=== PATIENT | male | born 1955 | race Caucasian/White ===

== ENCOUNTER 2022-06-16 14:03 | Emergency (ER) | payer MEDICARE ==
[~2022-06-16] VITALS: Ht 180.3 cm; Wt 133.8 kg
[~2022-06-16 14:03] MED LIST: ALLOPURINOL100 M1 PO; ATOR40TA PO; Amiodarone HCl200 MG PO; CARVEDILOL25 M9 PO; DULCOLAX400 MG/5 M PO; ISOSORBIDE MONO60 MG PO; JARDIANCE10 MG PO; METFORMIN HCL500 M3 PO; OXYCODONE-ACET1 EAC3 UD; Percocet 5-3251 EACH PO; TRULICITY4.5 MG/0.5 SC; XARELTO15 M1 PO; Zestril30 MG PO
[2022-06-17] MEDS ORDERED: ASPI81CH PO (08:40)
== END 2022-06-16 17:55 | disposition home or self-care (01) ==
LOC: ER 14:03
DX: S99.912A Unspecified injury of left ankle, initial encounter (principal)
CPT/HCPCS: 99281

== ENCOUNTER 2022-06-16 17:52 | Inpatient (IN) | payer OTHER, MEDICARE ==
[~2022-06-16] VITALS: Ht 180.3 cm; Wt 179.2 kg
--- NOTE | 2022-06-16 18:26 | NUR ---
ARRIVED TO ROOM VIA W/C, 4 PERSON MAX ASSIST W/ MARU LIFT TO TRANSFER TO BED, PT STATES HE HASN'T BEEN ABLE TO BEAR WEIGHT ON R LEG AND LLE IS NWB W/ SPLINT AND LINH WRAP, DENIES ANY NEED FOR PAIN MEDS AT THIS TIMEORIENTED TO ROOM AND CALL LIGHT, REPORT TO BAILEY QUINTERO.
--- NOTE | 2022-06-16 18:32 | NUR ---
DR. FREEDMAN NOTIFIED PT IS IN ROOM BY [employer]SELIT[employer] INDUCTOR TESTER.
[2022-06-16 19:25] LABS: Hematocrit 38.2 % (37.0-53.0); Hemoglobin 11.2 g/dL (13.5-17.5)
[2022-06-16 19:41] LABS: Bun/Creatinine Ratio 11.9 (12.0-20.0); Calcium, Blood 8.9 mg/dL (8.5-10.1); Creatinine, Blood 1.68 mg/dL (0.60-1.20); Potassium, Blood 4.1 mmol/L (3.5-5.5)
[2022-06-16 19:43] LABS: International Normalized Ratio 1.19; Prothrombin Time Results 12.4 Sec (9.7-11.5)
[2022-06-17 06:35] LABS: BASOPHILS ABSOLUTE AUTO 0.03 K/mm3 (0.00-0.23); BASOPHILS PERCENT AUTO 1 % (0-2); EOSINOPHILS ABSOLUTE AUTO 0.04 K/mm3 (0.00-0.68); EOSINOPHILS PERCENT AUTO 1 % (0-6); Hematocrit 35.5 % (37.0-53.0); IMMATURE GRAN ABSOLUTE AUTO 0.04 K/mm3 (0.00-0.10); IMMATURE GRAN PERCENT AUTO 1 % (0-1); LYMPHOCYTES PERCENT AUTO 31 % (21-46); MONOCYTES ABSOLUTE AUTO 0.62 K/mm3 (0.16-1.47); MONOCYTES PERCENT AUTO 12 % (4-13); Mean Corpuscular HGB 26.4 pg (26.0-34.0); Mean Corpuscular Volume 85 fL (80-100); Mean Platelet Volume 8.9 fL (9.1-12.4); NEUTROPHILS ABSOLUTE AUTO 2.89 K/mm3 (1.96-9.15); NEUTROPHILS PERCENT AUTO 55 % (41-73); Platelet Count 277 K/mm3 (150-400); RDW Coefficient Variation 15.9 % (11.7-14.2); Red Blood Cell Count 4.17 M/mm3 (4.30-5.90); White Blood Cell Count 5.22 K/mm3 (4.00-11.30)
--- NOTE | 2022-06-17 06:47 | NUR ---
SUMMARY PT RESTING.NPO.PENDING EKG PRIOR ORDER, AND ECHO NEW ORDER.
[2022-06-17 06:52] LABS: Albumin, Blood 2.7 g/dL (3.4-5.0); Albumin/Globulin Ratio 0.6 (0.8-1.8); Bilirubin, Total 0.6 mg/dL (0.1-1.0); Bun/Creatinine Ratio 11.6 (12.0-20.0); Calcium, Blood 8.8 mg/dL (8.5-10.1); Creatinine, Blood 1.72 mg/dL (0.60-1.20); Globulin, Blood 4.4 g/dL (2.2-4.0); Magnesium, Blood 2.1 mg/dL (1.6-2.4); Potassium, Blood 4.1 mmol/L (3.5-5.5); Total Protein, Blood 7.1 g/dL (6.4-8.2)
[2022-06-17] MEDS ORDERED: ASPI81CH PO (08:40)
--- NOTE | 2022-06-17 13:21 | NUR ---
PATIENT JUST LEFT FOR THE OR.
--- NOTE | 2022-06-17 18:25 | NUR ---
PATIENT WAS BROUGHT BACK FROM PACU TODAY AT 1820. POD 0 LEFT ANKLE ORIF PATIENT IS ALERT AND CAN ANSWER QUESTIONS APPROPRIATELY. VS ARE WNL. PATIENT REPORTS A BURNING SENSATION ON HIS LEFT LEG BUT REFUSES PAIN MEDICATIONS AT THIS TIME. LEFT LEG HAS A SPLINT WITH LINH WRAP THAT IS C/D/I. DENIES NUMBNESS OR TINGLING TO ALL EXTREMITIES. CAN MOVE FINGERS AND TOES WHEN ASKED. HE IS TOLERATING SMALL AMOUNTS OF PO INTAKE AT THIS TIME. HE IS LAYING IN BED WITH CALL LIGHT IN REACH.
[2022-06-18 04:55] LABS: BASOPHILS ABSOLUTE AUTO 0.02 K/mm3 (0.00-0.23); BASOPHILS PERCENT AUTO 0 % (0-2); EOSINOPHILS PERCENT AUTO 0 % (0-6); Hematocrit 35.9 % (37.0-53.0); Hemoglobin 11.1 g/dL (13.5-17.5); IMMATURE GRAN ABSOLUTE AUTO 0.05 K/mm3 (0.00-0.10); IMMATURE GRAN PERCENT AUTO 1 % (0-1); LYMPHOCYTES ABSOLUTE AUTO 0.86 K/mm3 (0.84-5.20); LYMPHOCYTES PERCENT AUTO 10 % (21-46); MONOCYTES ABSOLUTE AUTO 0.54 K/mm3 (0.16-1.47); MONOCYTES PERCENT AUTO 6 % (4-13); Mean Corpuscular HGB 26.2 pg (26.0-34.0); Mean Corpuscular HGB Conc 30.9 g/dL (31.5-36.5); Mean Corpuscular Volume 85 fL (80-100); Mean Platelet Volume 8.7 fL (9.1-12.4); NEUTROPHILS ABSOLUTE AUTO 7.49 K/mm3 (1.96-9.15); NEUTROPHILS PERCENT AUTO 84 % (41-73); Platelet Count 266 K/mm3 (150-400); RDW Coefficient Variation 15.8 % (11.7-14.2); RDW Standard Deviation 48.3 fL (35.1-46.3); Red Blood Cell Count 4.24 M/mm3 (4.30-5.90); White Blood Cell Count 8.96 K/mm3 (4.00-11.30)
[2022-06-18 05:37] LABS: Albumin, Blood 2.7 g/dL (3.4-5.0); Anion Gap 4 mmol/L (6-16); Blood Urea Nitrogen 20 mg/dL (8-24); Bun/Creatinine Ratio 12.9 (12.0-20.0); CO2, Blood 28 mmol/L (21-32); Calcium, Blood 8.8 mg/dL (8.5-10.1); Chloride, Blood 102 mmol/L (98-108); Creatinine, Blood 1.55 mg/dL (0.60-1.20); Glomerular Filtration Rate 49 (60-); Glucose, Blood 152 mg/dL (70-99); Phosphorus, Blood 3.4 mg/dL (2.5-4.9); Potassium, Blood 4.6 mmol/L (3.5-5.5); Sodium, Blood 134 mmol/L (136-145)
--- NOTE | 2022-06-18 07:59 | NUR ---
SHIFT SUMMARY POD1 L ANKLE ORIF. PT REPORTS PAIN T/O SHIFT. PAIN LEVEL BETWEEN 6-8/10. PT ON BEDREST. VOIDING IN URINAL. AOX4. L ANKLE WITH SPLINT AND LINH WRAP. HYPERTENSIVE. NEW ORDER FOR HYDRALIZINE IV. BP IMPROVED THIS MORNING. CALL LIGHT WITHIN REACH. REPORT GIVEN TO ALLYSSA QUINTERO.
--- NOTE | 2022-06-18 14:00 | NUR ---
ASSUMED CARE OF PATIENT AT 1400. PATIENT RESTING IN BED W/ HOB ELEVATED. PATIENT REPORTS PAIN 5/10 AT THIS TIME, IMPROVED FROM HIS PREVIOUS 10/10 REPORTED TO PREVIOUS RN. PATIENT DENIES NEEDS AT THIS TIME, CALL LIGHT IN REACH.
--- NOTE | 2022-06-18 17:26 | NUR ---
SHIFT SUMMARY NO ACUTE CHANGES SINCE ASSUMPTION OF CARE. PATIENT HAS STRUGGLED W/ PAIN MANAGEMENT, BUT REPORTING BETTER RELIEF IN THE LATTER PART OF THE SHIFT. EATING, DRINKING, & VOIDING W/O DIFFICULTY. DID WELL W/ PT THIS AM. CALLS APPROPRIATELY, WITHIN REACH. WILL REPORT TO ONCOMING RN AT 1900.
--- NOTE | 2022-06-19 05:28 | NUR ---
Shift Summary POD2 L ANKLE ORIF. L ANKLE WITH SPLINT AND ACEWRAP REMAIN CDI. LLE ELEVATED. PT REPORTS MILD-MODERATE PAIN. PAIN MANAGED WITH 10MG OXY AND TYLENOL. PT DENIES NUMBNESS AND TINGLING. CAP REFILL WNL. VOIDING. TOLERATING PO INTAKE. DENIES N/V. VSS. PT SLEPT GOOD OVERNIGHT. CALL LIGHT WITHIN REACH. WILL PROVIDE REPORT TO ONCOMING NURSE.
--- NOTE | 2022-06-19 17:08 | NUR ---
SHIFT SUMMARY NO ACUTE CHANGES THIS SHIFT. POD 2 ORIF LEFT ANKLE, DRESSING C/D/I. MODERATE AMOUNTS OF PAIN, MEDICATED PER EMAR. UP TO CHAIR W/ PHYSICAL THERAPY. PHYSICAL TEHRAPIST REPORTED PATIENT TO BE 1P MINIMAL ASSIST UP, HOWEVER AFTER PATIENT WAS UP IN CHAIR FOR A FEW HOURS, PATIENT REQUIRED 3P ASSIST BACK TO BED W/ NWB STATUS ON LEFT LEG. PATIENT HAD STRENGTH TO RETAIL GREETING CARD MERCHANDISER PALCE, BUT UNABLE TO TAKE ANY STEPS WITH WALKER. CALLS APPROPRIATELY, IN REACH. WILL REPORT TO ONCOMING RN AT 1900.
--- NOTE | 2022-06-20 04:20 | NUR ---
SHIFT SUMMARY POD3 L ANKLE ORIF. PT REPORTS MODERATE PAIN OVERNIGHT. PAIN MANAGED WITH TYLENOL AND OXYCODONE. L ANKLE WITH SPLINT AND LINH WRAP. REMAINED CDI. PT HAD 2 LOOSE BM. PT REPORTS UPSET STOMACH, REQUESTED TUMS. 1G TUMS Q6 GIVEN. TOLERATING PO INTAKE. DENIES N/V. VSS. DENIES CP AND SOB. NASAL CANULA AT NIGHT WITH 2L 02, HX BEATRIZ, REFUSE TO USE HOSPITAL CPAP. CALL LIGHT WTIHIN REACH. WILL PROVIDE REPORT TO ONCOMING NURSE.
[2022-06-20 05:34] LABS: BASOPHILS ABSOLUTE AUTO 0.04 K/mm3 (0.00-0.23); BASOPHILS PERCENT AUTO 1 % (0-2); EOSINOPHILS ABSOLUTE AUTO 0.14 K/mm3 (0.00-0.68); EOSINOPHILS PERCENT AUTO 2 % (0-6); Hematocrit 36.4 % (37.0-53.0); Hemoglobin 10.8 g/dL (13.5-17.5); IMMATURE GRAN ABSOLUTE AUTO 0.02 K/mm3 (0.00-0.10); IMMATURE GRAN PERCENT AUTO 0 % (0-1); LYMPHOCYTES ABSOLUTE AUTO 1.89 K/mm3 (0.84-5.20); LYMPHOCYTES PERCENT AUTO 30 % (21-46); MONOCYTES ABSOLUTE AUTO 0.53 K/mm3 (0.16-1.47); MONOCYTES PERCENT AUTO 9 % (4-13); Mean Corpuscular HGB 26.2 pg (26.0-34.0); Mean Corpuscular HGB Conc 29.7 g/dL (31.5-36.5); Mean Corpuscular Volume 88 fL (80-100); Mean Platelet Volume 9.3 fL (9.1-12.4); NEUTROPHILS ABSOLUTE AUTO 3.62 K/mm3 (1.96-9.15); NEUTROPHILS PERCENT AUTO 58 % (41-73); Platelet Count 312 K/mm3 (150-400); RDW Coefficient Variation 16.1 % (11.7-14.2); RDW Standard Deviation 51.8 fL (35.1-46.3); Red Blood Cell Count 4.13 M/mm3 (4.30-5.90); White Blood Cell Count 6.24 K/mm3 (4.00-11.30)
[2022-06-20 06:07] LABS: Albumin, Blood 2.7 g/dL (3.4-5.0); Anion Gap 2 mmol/L (6-16); Blood Urea Nitrogen 33 mg/dL (8-24); Bun/Creatinine Ratio 17.9 (12.0-20.0); CO2, Blood 32 mmol/L (21-32); Calcium, Blood 8.9 mg/dL (8.5-10.1); Chloride, Blood 101 mmol/L (98-108); Creatinine, Blood 1.84 mg/dL (0.60-1.20); Glomerular Filtration Rate 40 (60-); Glucose, Blood 117 mg/dL (70-99); Phosphorus, Blood 3.8 mg/dL (2.5-4.9); Potassium, Blood 3.9 mmol/L (3.5-5.5); Sodium, Blood 135 mmol/L (136-145)
[2022-06-21 05:23] LABS: BASOPHILS ABSOLUTE AUTO 0.04 K/mm3 (0.00-0.23); BASOPHILS PERCENT AUTO 1 % (0-2); EOSINOPHILS ABSOLUTE AUTO 0.18 K/mm3 (0.00-0.68); EOSINOPHILS PERCENT AUTO 3 % (0-6); Hematocrit 34.8 % (37.0-53.0); Hemoglobin 10.3 g/dL (13.5-17.5); IMMATURE GRAN ABSOLUTE AUTO 0.05 K/mm3 (0.00-0.10); IMMATURE GRAN PERCENT AUTO 1 % (0-1); LYMPHOCYTES ABSOLUTE AUTO 2.09 K/mm3 (0.84-5.20); LYMPHOCYTES PERCENT AUTO 32 % (21-46); MONOCYTES ABSOLUTE AUTO 0.63 K/mm3 (0.16-1.47); MONOCYTES PERCENT AUTO 10 % (4-13); Mean Corpuscular HGB 25.7 pg (26.0-34.0); Mean Corpuscular HGB Conc 29.6 g/dL (31.5-36.5); Mean Corpuscular Volume 87 fL (80-100); Mean Platelet Volume 9.3 fL (9.1-12.4); NEUTROPHILS ABSOLUTE AUTO 3.52 K/mm3 (1.96-9.15); NEUTROPHILS PERCENT AUTO 54 % (41-73); Platelet Count 310 K/mm3 (150-400); RDW Coefficient Variation 15.8 % (11.7-14.2); RDW Standard Deviation 50.2 fL (35.1-46.3); Red Blood Cell Count 4.01 M/mm3 (4.30-5.90); White Blood Cell Count 6.51 K/mm3 (4.00-11.30)
[2022-06-21 05:46] LABS: Albumin, Blood 2.6 g/dL (3.4-5.0); Albumin/Globulin Ratio 0.6 (0.8-1.8); Bilirubin, Total 0.7 mg/dL (0.1-1.0); Calcium, Blood 8.9 mg/dL (8.5-10.1); Potassium, Blood 4.2 mmol/L (3.5-5.5); Total Protein, Blood 6.6 g/dL (6.4-8.2)
--- NOTE | 2022-06-21 06:41 | NUR ---
POD 4 S/P ORIF OF LEFT ANKLE. PT BP HYPO EALRY IN SHIFT, PT ASYMPTOMATIC, WNL THIS AM. SPLINT CDI, ELEVATION ENC. PAIN MGD PER EMAR W/REP RELIEF. PT REP MILD NAUSEA EARLY IN SHIFT, REP RELIEF AFTER PASSING LARGE AMT GAS. PT NEEDING MAX ASSIST W/REPOTIONING WHILE IN BED. PLAN TO MOBILIZE W/PT AND D/C TO SNF.
--- NOTE | 2022-06-21 09:30 | NUR ---
HYPOTENSION PT WAS WORKING WITH THERAPY THIS MORNING. PT REPORTED FEELING DIZZY/LIGHTHEADED. PT ASSISTED BACK TO BED AND BP CHECKED. BP 90/[address] MARVIN NOTIFIED OF LOW BP WELL INCREASED CREATININE AND DECREASED GFR. IV FLUID BOLUS STARTED AT THIS TIME, AFTER BOLUS IS COMPLETE WILL START FLUIDS AT 75ML/HR PER ORDER. PT REPORTS DIZZINESS/LIGHTHEADEDNESS IS IMPROVING AFTER BEING ASSISTED BACK TO BED WITH BLE ELEVATED.
--- NOTE | 2022-06-21 13:32 | NUR ---
SHIFT SUMMARY PT IS POD#4 FROM ORIF OF L ANKLE. PAIN MANAGED WITH OXYCODONE. PT WORKED WITH THERAPY THIS AM. WHEN WORKING WITH PHYSICAL THERAPY BP DROPPED AND PT WAS SYMPTOMATIC, PT IMPROVED AFTER A BOLUS WAS GIVEN (SEE NOTE). PT LATER DID WELL WHEN WORKING WITH OCCUPATIONAL THERAPY. REPORT GIVEN TO VIVIANA CHACON RN.
--- NOTE | 2022-06-21 13:33 | NUR ---
ASSUMED CARE OF PATIENT. PT REPORTS LEFT ANKLE IS PAINFUL AND THAT HE HAS SLIGHT NUMBNESS ON THE OUTER ASPECT OF LEFT FOOT. PT REPORTS NUMBNESS IS UNCHANGED FROM THIS MORNING. CAPILLARY REFILL LESS THAN 3 SECONDS, MOVES ALL TOES SPONTANEOUSLY. LEFT LEG ELEVATED ON PILLOWS. PT DECLINE ICEPACK TO LEFT ANKLE
--- NOTE | 2022-06-21 14:52 | NUR ---
Pt. is awake in bed and welcomes my visit. Pt. quickly identifies himself as a man of gonzalez. Facilitated a life review which included matters of gonzalez, belief, and mnistry. Was able to resource the Pt. to a local ministerial organization.Established rapport and engaged in lengthy professional dialogue. Prayed with Pt. and Pt. verbalized gratitude or the spiritual care visit.
--- NOTE | 2022-06-21 18:19 | NUR ---
pt reports he is feeling better this afternoon than this morning. reports left ankle is painful and throbbing but is feeling a bit less painful as compared to yesterday.
--- NOTE | 2022-06-22 06:44 | NUR ---
POD 5 S/P ORIF OF LEFT ANKLE. PT VSS T/O NIGHT. SPLINT CDI, LLE ELEVATED IN BED. PAIN MGD PER EMAR AND W/REPOSITIONING. PT C/O UPSET STOMACH, REP RELIEF AFTER PASSING GAS AND BM. PT ENC TO MOBILIZE, WAS ABLE TO SIT UP TO SOB W/MOD ASSISTANCE. PLAN TO MOBILIZE W/PT AND D/C TO SNF.
[2022-06-22 07:52] LABS: BASOPHILS ABSOLUTE AUTO 0.05 K/mm3 (0.00-0.23); BASOPHILS PERCENT AUTO 1 % (0-2); EOSINOPHILS ABSOLUTE AUTO 0.12 K/mm3 (0.00-0.68); EOSINOPHILS PERCENT AUTO 2 % (0-6); Hematocrit 35.3 % (37.0-53.0); Hemoglobin 10.5 g/dL (13.5-17.5); IMMATURE GRAN ABSOLUTE AUTO 0.06 K/mm3 (0.00-0.10); IMMATURE GRAN PERCENT AUTO 1 % (0-1); LYMPHOCYTES ABSOLUTE AUTO 1.77 K/mm3 (0.84-5.20); LYMPHOCYTES PERCENT AUTO 26 % (21-46); MONOCYTES ABSOLUTE AUTO 0.63 K/mm3 (0.16-1.47); MONOCYTES PERCENT AUTO 9 % (4-13); Mean Corpuscular HGB Conc 29.7 g/dL (31.5-36.5); Mean Corpuscular Volume 87 fL (80-100); Mean Platelet Volume 9.4 fL (9.1-12.4); NEUTROPHILS ABSOLUTE AUTO 4.23 K/mm3 (1.96-9.15); NEUTROPHILS PERCENT AUTO 62 % (41-73); Platelet Count 314 K/mm3 (150-400); RDW Coefficient Variation 15.7 % (11.7-14.2); RDW Standard Deviation 50.1 fL (35.1-46.3); Red Blood Cell Count 4.04 M/mm3 (4.30-5.90); White Blood Cell Count 6.86 K/mm3 (4.00-11.30)
[2022-06-22 08:10] LABS: Albumin, Blood 2.7 g/dL (3.4-5.0); Albumin/Globulin Ratio 0.6 (0.8-1.8); Bilirubin, Total 0.7 mg/dL (0.1-1.0); Bun/Creatinine Ratio 20.4 (12.0-20.0); Creatinine, Blood 2.21 mg/dL (0.60-1.20); Globulin, Blood 4.3 g/dL (2.2-4.0); Potassium, Blood 4.5 mmol/L (3.5-5.5)
[2022-06-22 13:15] LABS: Source, Urine Straight Cath
[2022-06-22 13:23] LABS: Appearance, Urine Clear (Clear); Bilirubin, Urine Neg (Neg); Blood, Urine Neg (Neg); Color, Urine Yellow (P-Yellow); Glucose Qualitative, Urine Neg (Neg); Ketones, Urine Neg (Neg); Leukocyte Esterase, Urine Neg (Neg); Nitrite, Urine Neg (Neg); Protein, Urine 1+ (Neg); Specific Gravity, Urine 1.015 (1.003-1.022); Urobilinogen, Urine NORM (Normal)
--- NOTE | 2022-06-22 17:30 | NUR ---
SHIFT SUMMARY: POD 5 LEFT ANKLE ORIF NO SIGNIFICANT CHANGES. PATIENT HAS BEEN MORE AWAKE IN THE AFTERNOON SINCE HE WAS SLIGHTLY DROWSY THIS MORNING. PATIENTS BLOOD PRESSURES ARE SLOWLY IMPROVING. HE DENIES ANY NAUSEA THIS SHIFT. PATIENT ALSO DENIES NUMBNESS OR TINGLING IN ALL EXTREMITIES. HIS LEFT ANKLE IS IN A SPLINT WITH LINH WRAP THAT IS C/D/I. HE IS TOLERATING PO INTAKE AND IS VOIDING/HAVING BMS. HE IS A SBA WITH FWW AND GAIT BELT BUT NEEDS VERBAL ENCOURAGEMENT/DIRECTIONS. PATIENT CALLS APPROPRIATELY WITH CALL LIGHT IN REACH.
--- NOTE | 2022-06-23 05:47 | NUR ---
POD 6 S/P LEFT ANKLE ORIF. PT VSS T/O NIGHT, PT DENIED DIZZINESS. 2LO2 NC IN [address] WHEN SLEEPING. SPLINT CDI, PT REP PAIN IMPROVED, MGD W/TYLENOL AND ELEVATION W/REP RELIEF, DECLINED NEED FOR ADDITIONAL PAIN MEDS. CAP REFILL WNL, PT DENIED N/T. PT JACY PO, DENIED N/V, REP +FLATUS, IS VOIDING URINE W/O DIFFICULTY. IVF CONT PER ORDERS. PLAN TO D/C [facility] WHEN KIDNEY FX IMPROVED.
[2022-06-23 05:57] LABS: BASOPHILS ABSOLUTE AUTO 0.05 K/mm3 (0.00-0.23); BASOPHILS PERCENT AUTO 1 % (0-2); EOSINOPHILS ABSOLUTE AUTO 0.11 K/mm3 (0.00-0.68); EOSINOPHILS PERCENT AUTO 1 % (0-6); Hematocrit 33.3 % (37.0-53.0); Hemoglobin 9.8 g/dL (13.5-17.5); IMMATURE GRAN ABSOLUTE AUTO 0.06 K/mm3 (0.00-0.10); IMMATURE GRAN PERCENT AUTO 1 % (0-1); LYMPHOCYTES ABSOLUTE AUTO 1.67 K/mm3 (0.84-5.20); LYMPHOCYTES PERCENT AUTO 22 % (21-46); MONOCYTES ABSOLUTE AUTO 0.94 K/mm3 (0.16-1.47); MONOCYTES PERCENT AUTO 12 % (4-13); Mean Corpuscular HGB 26.1 pg (26.0-34.0); Mean Corpuscular HGB Conc 29.4 g/dL (31.5-36.5); Mean Corpuscular Volume 89 fL (80-100); Mean Platelet Volume 9.6 fL (9.1-12.4); NEUTROPHILS ABSOLUTE AUTO 4.92 K/mm3 (1.96-9.15); NEUTROPHILS PERCENT AUTO 64 % (41-73); Platelet Count 272 K/mm3 (150-400); RDW Coefficient Variation 15.9 % (11.7-14.2); RDW Standard Deviation 51.5 fL (35.1-46.3); Red Blood Cell Count 3.76 M/mm3 (4.30-5.90); White Blood Cell Count 7.75 K/mm3 (4.00-11.30)
[2022-06-23 06:18] LABS: Bun/Creatinine Ratio 21.4 (12.0-20.0); Calcium, Blood 8.4 mg/dL (8.5-10.1); Creatinine, Blood 1.96 mg/dL (0.60-1.20); Potassium, Blood 4.6 mmol/L (3.5-5.5)
[2022-06-23 12:41] LABS: SARS-Cov-2 (COVID-19) PCR, MMC Negative (NEGATIVE)
--- NOTE | 2022-06-23 16:43 | NUR ---
DISCHARGE PT DISCHARGED TO [facility] AT 1310. REPORT GIVEN AT APROX 1330. ALL BELONGINS SENT WITH PT. PACKET W/HARDSCRIPT GIVEN TO TRANSPORT
== END 2022-06-23 13:16 | DRG 493 ==
LOC: SURS 17:52
PROVIDERS: Hospitalist; Internal Medicine; Orthopaedic Surgery; ADMIT Family Medicine
PROC: 0QSK04Z Reposition Left Fibula with Internal Fixation Device, Open Approach (ICD-10-PCS; principal; 2022-06-17 14:00)
DX: S82.842A Displaced bimalleolar fracture of left lower leg, initial encounter for closed fracture (principal); I13.0 Hypertensive heart and chronic kidney disease with heart failure and stage 1 through stage 4 chronic kidney disease, or unspecified chronic kidney disease; N17.9 Acute kidney failure, unspecified; Z68.43 Body mass index [BMI] 50.0-59.9, adult; V58.4XXA Person boarding or alighting a pick-up truck or van injured in noncollision transport accident, initial encounter; E11.22 Type 2 diabetes mellitus with diabetic chronic kidney disease; I50.9 Heart failure, unspecified; I48.91 Unspecified atrial fibrillation; M10.9 Gout, unspecified; E78.5 Hyperlipidemia, unspecified; I25.2 Old myocardial infarction; Z95.5 Presence of coronary angioplasty implant and graft; Z95.1 Presence of aortocoronary bypass graft; Z95.810 Presence of automatic (implantable) cardiac defibrillator; Z79.84 Long term (current) use of oral hypoglycemic drugs; Z79.01 Long term (current) use of anticoagulants; I25.10 Atherosclerotic heart disease of native coronary artery without angina pectoris; E66.01 Morbid (severe) obesity due to excess calories; G47.33 Obstructive sleep apnea (adult) (pediatric); N18.30 Chronic kidney disease, stage 3 unspecified
CPT/HCPCS: 36415; 76770; 80048; 80053; 80069; 82570; 82947; 83036; 83735; 84100; 84300; 84540; 85014; 85018; 85025; 85610; 93005; 93010; 93306; 94760; 97110; 97162; 97165; 97530; A9270; C1713; G0378; J0360; J0690; J1650; J2250; J2270; J2405; J2704; J2765; J3010; J7030; J7120; U0004

== ENCOUNTER 2022-06-27 04:55 | Inpatient (IN) | payer MEDICARE ==
[~2022-06-27] VITALS: Ht 188 cm; Wt 170.0 kg
[~2022-06-27 04:55] MED LIST changes: +ASPI81CH PO
[2022-06-27 05:39] LABS: BASOPHILS ABSOLUTE AUTO 0.04 K/mm3 (0.00-0.23); BASOPHILS PERCENT AUTO 1 % (0-2); EOSINOPHILS ABSOLUTE AUTO 0.01 K/mm3 (0.00-0.68); EOSINOPHILS PERCENT AUTO 0 % (0-6); Hematocrit 37.5 % (37.0-53.0); Hemoglobin 11.4 g/dL (13.5-17.5); IMMATURE GRAN ABSOLUTE AUTO 0.03 K/mm3 (0.00-0.10); IMMATURE GRAN PERCENT AUTO 0 % (0-1); LYMPHOCYTES PERCENT AUTO 19 % (21-46); MONOCYTES ABSOLUTE AUTO 0.49 K/mm3 (0.16-1.47); MONOCYTES PERCENT AUTO 7 % (4-13); Mean Corpuscular HGB 26.2 pg (26.0-34.0); Mean Corpuscular HGB Conc 30.4 g/dL (31.5-36.5); Mean Corpuscular Volume 86 fL (80-100); Mean Platelet Volume 9.8 fL (9.1-12.4); NEUTROPHILS ABSOLUTE AUTO 5.14 K/mm3 (1.96-9.15); NEUTROPHILS PERCENT AUTO 73 % (41-73); Platelet Count 300 K/mm3 (150-400); RDW Coefficient Variation 16.2 % (11.7-14.2); RDW Standard Deviation 50.6 fL (35.1-46.3); Red Blood Cell Count 4.35 M/mm3 (4.30-5.90); White Blood Cell Count 7.01 K/mm3 (4.00-11.30)
[2022-06-27 05:57] LABS: Albumin, Blood 2.7 g/dL (3.4-5.0); Albumin/Globulin Ratio 0.5 (0.8-1.8); Bilirubin, Total 0.6 mg/dL (0.1-1.0); Calcium, Blood 9.6 mg/dL (8.5-10.1); Creatinine, Blood 1.21 mg/dL (0.60-1.20); Potassium, Blood 4.3 mmol/L (3.5-5.5); Total Protein, Blood 7.7 g/dL (6.4-8.2)
[2022-06-27] MEDS ORDERED: ALLO100 PO (14:46)
[2022-06-27] MEDS ORDERED: ASPI81CH PO (14:47)
[2022-06-27] MEDS ORDERED: ATORVASTATIN CA80 M1 PO (14:48)
[2022-06-27] MEDS ORDERED: COREG25 MG PO (14:49)
[2022-06-27] MEDS ORDERED: TRULICITY4.5 MG/0.5 SC (14:50)
[2022-06-27] MEDS ORDERED: JARDIANCE10 MG PO (14:51)
[2022-06-27] MEDS ORDERED: ISOSORBIDE MONO60 MG PO (14:52)
[2022-06-27] MEDS ORDERED: LISI5 PO (14:53)
[2022-06-27] MEDS ORDERED: Glucophage 500 mg PO (14:54)
[2022-06-27] MEDS ORDERED: ADALAT CC30 M1 PO (14:55)
[2022-06-27] MEDS ORDERED: XARELTO15 M1 PO (14:56)
--- NOTE | 2022-06-27 17:45 | NUR ---
SHIFT SUMMARY PT IS A NEW ADMIT FROM THE ED THIS AFTERNOON, AOX4 AND A LIFT PT. PT IS TO GO NPO AT MIDNIGHT TONIGHT FOR POSSIBLE SURGERY TOMORROW. PT IS AWARE AND VERY PROACTIVE IN HIS CARE. HE IS PLEASANT AND COOPERATIVE. WILL REPORT TO ONCOMING NURSE.
--- NOTE | 2022-06-28 03:16 | NUR ---
EQUINE VET SUMMARY NO ACUTE EVENTS THROUGHOUT THE NIGHT. A&OX4. PATIENT EFFECTIVELY COMMUNICATES NEEDS. RR EVEN AND UNLABORED ON RA. VSS. NPO AFTER MIDNIGHT IN PREPARATION FOR POTENTIAL CHOLECYSTECTOMY TODAY. NO PAIN REPORTED TO THIS RN. PATIENT NOTED TO SLEEP WELL THROUGHOUT THE NIGHT. BED LOW AND LOCKED. CALL LIGHT WITHIN REACH. THIS RN WILL CONTINUE TO MONITOR.
[2022-06-28 05:50] LABS: BASOPHILS ABSOLUTE AUTO 0.04 K/mm3 (0.00-0.23); BASOPHILS PERCENT AUTO 1 % (0-2); EOSINOPHILS ABSOLUTE AUTO 0.05 K/mm3 (0.00-0.68); EOSINOPHILS PERCENT AUTO 1 % (0-6); Hematocrit 34.8 % (37.0-53.0); Hemoglobin 10.4 g/dL (13.5-17.5); IMMATURE GRAN ABSOLUTE AUTO 0.02 K/mm3 (0.00-0.10); IMMATURE GRAN PERCENT AUTO 0 % (0-1); LYMPHOCYTES ABSOLUTE AUTO 1.68 K/mm3 (0.84-5.20); LYMPHOCYTES PERCENT AUTO 30 % (21-46); MONOCYTES ABSOLUTE AUTO 0.52 K/mm3 (0.16-1.47); MONOCYTES PERCENT AUTO 9 % (4-13); Mean Corpuscular HGB 25.9 pg (26.0-34.0); Mean Corpuscular HGB Conc 29.9 g/dL (31.5-36.5); Mean Corpuscular Volume 87 fL (80-100); Mean Platelet Volume 10.1 fL (9.1-12.4); NEUTROPHILS ABSOLUTE AUTO 3.29 K/mm3 (1.96-9.15); NEUTROPHILS PERCENT AUTO 59 % (41-73); Platelet Count 262 K/mm3 (150-400); RDW Coefficient Variation 16.1 % (11.7-14.2); RDW Standard Deviation 50.9 fL (35.1-46.3); Red Blood Cell Count 4.01 M/mm3 (4.30-5.90)
[2022-06-28 06:08] LABS: Albumin, Blood 2.3 g/dL (3.4-5.0); Albumin/Globulin Ratio 0.5 (0.8-1.8); Bilirubin, Total 0.7 mg/dL (0.1-1.0); Bun/Creatinine Ratio 19.1 (12.0-20.0); Calcium, Blood 8.7 mg/dL (8.5-10.1); Creatinine, Blood 1.31 mg/dL (0.60-1.20); Globulin, Blood 4.3 g/dL (2.2-4.0); Phosphorus, Blood 3.4 mg/dL (2.5-4.9); Total Protein, Blood 6.6 g/dL (6.4-8.2)
--- NOTE | 2022-06-28 10:35 | NUR ---
Pre Surgical [facility] DICD check, appears working normally, RAp 65%, RVp 76%, no episodes of VHR/AF/VT/VF recorded. Therapies left "ON", Day Surgery has option to place magnet on ICD to disable therapies, or call Pacer clinic to turn therapies OFF/ON Prior/Post Procedure. Copy of device report placed in front of chart, and routed to Dr Trevino for cardiology review.
--- NOTE | 2022-06-28 11:46 | NUR ---
Pt. is awake in bed and welcomes my visit. Pt. is pleasant and rapport is quickly re-established. Pt. verbalized that he is expecting surgery on his gall baldder this afternoon. Facilitate a gonzalez and life review, and Pt. displays evidence of being confidant of both his procedure and his gonzalez in God. Seek to normalize the Pt. experience. Prayed with Pt. Pt. verbalized gratitude for the spiritual care visit and welcomes this glass beveller to return.
--- NOTE | 2022-06-28 17:54 | NUR ---
PATIENT A/OX4, PLEASANT AND COOPERATIVE WITH CARE. WENT DOWN FOR A LAP JACLYN THIS AFTERNOON. VSS, ON 2LO2 POST OP. 6 LAP LAP SITES TO ABDOMEN WITH GAUZE AND TEGADERM COVERING REMAIN C/D/I. PATIENT TOLERATING SIPS AND CHIPS. ZOFRAN GIVEN X1 PO DUE TO MILD NAUSEA WITH STATED RELIEF. REPORTS 7/10 PAIN, BUT DECLINES PAIN MEDICATION. ABLE TO MAKE NEEDS KNOWN. CALL APPROPRIATELY FOR ASSISTANCE.
--- NOTE | 2022-06-29 02:25 | NUR ---
SHIFT SUMMARY NOC PT A/O X 4. PLEASANT AND COOPERATIVE WITH CARE. POST OP LESS THAN 24 HOURS OF LAP JACLYN. PT HAS 6 LAP SITES DRESSED WITH GAUZE AND TEGADERM WHICH ARE C/D/I. PT REPORTS MILD PAIN IN ABD SITES AND DID NOT WANT PAIN RX. PT IS ON RA WITH SPO2 > 94%. PT REPORTS NO CP/SOB. PT HS CBG WAS 131 AND NO COVERAGE INDICATED. PT TOLERATING LIQUIDS WELL WELL SNACKS. PT HAS DRESSING BOOT ON LLE FROM RECENT SURGERY FOR FX. PT PLAN IS DC BACK TO [facility] FOR CONTINUED REHABILITATION WITH POSSIBLE DC THERE TODAY. PT IS CURRENTLY RESTING WITH BED IN LOWEST POSITION, AND CALL LIGHT WITHIN REACH.
[2022-06-29 06:25] LABS: BASOPHILS ABSOLUTE AUTO 0.01 K/mm3 (0.00-0.23); BASOPHILS PERCENT AUTO 0 % (0-2); EOSINOPHILS PERCENT AUTO 0 % (0-6); Hematocrit 34.1 % (37.0-53.0); Hemoglobin 10.3 g/dL (13.5-17.5); IMMATURE GRAN ABSOLUTE AUTO 0.02 K/mm3 (0.00-0.10); IMMATURE GRAN PERCENT AUTO 0 % (0-1); LYMPHOCYTES ABSOLUTE AUTO 0.83 K/mm3 (0.84-5.20); LYMPHOCYTES PERCENT AUTO 16 % (21-46); MONOCYTES ABSOLUTE AUTO 0.34 K/mm3 (0.16-1.47); MONOCYTES PERCENT AUTO 6 % (4-13); Mean Corpuscular HGB Conc 30.2 g/dL (31.5-36.5); Mean Corpuscular Volume 86 fL (80-100); Mean Platelet Volume 9.8 fL (9.1-12.4); NEUTROPHILS ABSOLUTE AUTO 4.09 K/mm3 (1.96-9.15); NEUTROPHILS PERCENT AUTO 77 % (41-73); Platelet Count 242 K/mm3 (150-400); RDW Coefficient Variation 15.5 % (11.7-14.2); RDW Standard Deviation 48.9 fL (35.1-46.3); Red Blood Cell Count 3.96 M/mm3 (4.30-5.90); White Blood Cell Count 5.29 K/mm3 (4.00-11.30)
[2022-06-29 06:53] LABS: Albumin, Blood 2.3 g/dL (3.4-5.0); Albumin/Globulin Ratio 0.5 (0.8-1.8); Bilirubin, Total 0.7 mg/dL (0.1-1.0); Bun/Creatinine Ratio 21.3 (12.0-20.0); Calcium, Blood 8.3 mg/dL (8.5-10.1); Creatinine, Blood 1.41 mg/dL (0.60-1.20); Globulin, Blood 4.3 g/dL (2.2-4.0); Potassium, Blood 4.3 mmol/L (3.5-5.5); Total Protein, Blood 6.6 g/dL (6.4-8.2)
[2022-06-29] MEDS ORDERED: LISI5 PO (10:12)
[2022-06-29] MEDS ORDERED: ONDA4 PO (10:12)
--- NOTE | 2022-06-29 15:34 | NUR ---
PATIENT WITH SOME NAUSEA TODAY AFTER FULL LIQUID LUNCH, ZOFRAN AND REGLAN, WITH GOOD RELIEF. TRANSFERED AT 3:35PM
== END 2022-06-29 15:27 | DRG 417 ==
LOC: ER 04:55 → ERHOLD 10:15 → MEDS 10:15
PROVIDERS: Emergency Medicine; Surgery; ADMIT Family Medicine
PROC: BF522Z0 Other Imaging of Gallbladder using Fluorescing Agent, Intraoperative (ICD-10-PCS; 2022-06-28)
PROC: 0FT44ZZ Resection of Gallbladder, Percutaneous Endoscopic Approach (ICD-10-PCS; principal; 2022-06-28 13:30)
DX: K80.01 Calculus of gallbladder with acute cholecystitis with obstruction (principal); K85.10 Biliary acute pancreatitis without necrosis or infection; Z68.43 Body mass index [BMI] 50.0-59.9, adult; I48.91 Unspecified atrial fibrillation; I12.9 Hypertensive chronic kidney disease with stage 1 through stage 4 chronic kidney disease, or unspecified chronic kidney disease; E66.01 Morbid (severe) obesity due to excess calories; E11.22 Type 2 diabetes mellitus with diabetic chronic kidney disease; N18.9 Chronic kidney disease, unspecified; E78.5 Hyperlipidemia, unspecified; G47.33 Obstructive sleep apnea (adult) (pediatric); M10.9 Gout, unspecified; I25.10 Atherosclerotic heart disease of native coronary artery without angina pectoris; Z79.01 Long term (current) use of anticoagulants; Z95.5 Presence of coronary angioplasty implant and graft; Z95.0 Presence of cardiac pacemaker; Z79.84 Long term (current) use of oral hypoglycemic drugs; Z79.899 Other long term (current) drug therapy; Z98.890 Other specified postprocedural states; Z79.82 Long term (current) use of aspirin; Z88.6 Allergy status to analgesic agent; Z95.1 Presence of aortocoronary bypass graft; Z87.81 Personal history of (healed) traumatic fracture; Z99.89 Dependence on other enabling machines and devices; Z28.21 Immunization not carried out because of patient refusal
CPT/HCPCS: 36415; 74300; 76705; 80053; 82947; 83690; 83735; 84100; 85025; 88304; 96361; 96374; 99285-25; A9270; C1894; J0694; J1170; J1650; J2405; J2765; J7030; J7120

== ENCOUNTER 2022-09-28 04:33 | Day surgery (SDC) | payer MEDICARE ==
[~2022-09-28 04:33] MED LIST changes: +ADALAT CC30 M1 PO; +ALLO100 PO; +ATORVASTATIN CA80 M1 PO; +COREG25 MG PO; +Glucophage 500 mg PO; +LISI5 PO; +ONDA4 PO
== END 2022-09-28 22:42 | disposition home or self-care (01) ==
LOC: WOUND 04:33
DX: E11.621 Type 2 diabetes mellitus with foot ulcer (principal); L97.522 Non-pressure chronic ulcer of other part of left foot with fat layer exposed; L97.529 Non-pressure chronic ulcer of other part of left foot with unspecified severity; E11.622 Type 2 diabetes mellitus with other skin ulcer; L97.822 Non-pressure chronic ulcer of other part of left lower leg with fat layer exposed; L97.812 Non-pressure chronic ulcer of other part of right lower leg with fat layer exposed; L97.322 Non-pressure chronic ulcer of left ankle with fat layer exposed; T81.31XD Disruption of external operation (surgical) wound, not elsewhere classified, subsequent encounter; I73.9 Peripheral vascular disease, unspecified; I10 Essential (primary) hypertension; Z86.31 Personal history of diabetic foot ulcer; Z87.81 Personal history of (healed) traumatic fracture; Z98.890 Other specified postprocedural states; Z95.0 Presence of cardiac pacemaker; Y83.9 Surgical procedure, unspecified as the cause of abnormal reaction of the patient, or of later complication, without mention of misadventure at the time of the procedure
CPT/HCPCS: A9270; G0463

== ENCOUNTER 2022-10-05 01:58 | Day surgery (SDC) | payer MEDICARE | END 2022-10-05 22:47 | disposition home or self-care (01) | LOC: WOUND | DX: T81.31XD Disruption of external operation (surgical) wound, not elsewhere classified, subsequent encounter (principal); E11.621 Type 2 diabetes mellitus with foot ulcer; L97.522 Non-pressure chronic ulcer of other part of left foot with fat layer exposed; E11.622 Type 2 diabetes mellitus with other skin ulcer; I87.2 Venous insufficiency (chronic) (peripheral); L97.812 Non-pressure chronic ulcer of other part of right lower leg with fat layer exposed; L97.322 Non-pressure chronic ulcer of left ankle with fat layer exposed; E11.51 Type 2 diabetes mellitus with diabetic peripheral angiopathy without gangrene; Z87.81 Personal history of (healed) traumatic fracture; I10 Essential (primary) hypertension; Z95.0 Presence of cardiac pacemaker | CPT/HCPCS: A9270; G0463 ==

== ENCOUNTER 2022-10-12 04:07 | Day surgery (SDC) | payer MEDICARE | END 2022-10-12 23:02 | disposition home or self-care (01) | LOC: WOUND 04:07 | DX: E11.621 Type 2 diabetes mellitus with foot ulcer (principal); L97.822 Non-pressure chronic ulcer of other part of left lower leg with fat layer exposed; L97.522 Non-pressure chronic ulcer of other part of left foot with fat layer exposed; T81.31XD Disruption of external operation (surgical) wound, not elsewhere classified, subsequent encounter; Z86.31 Personal history of diabetic foot ulcer; E11.51 Type 2 diabetes mellitus with diabetic peripheral angiopathy without gangrene; Z87.81 Personal history of (healed) traumatic fracture; Z98.890 Other specified postprocedural states; I10 Essential (primary) hypertension; Z95.0 Presence of cardiac pacemaker | CPT/HCPCS: A9270 ==

== ENCOUNTER 2022-10-19 01:22 | Day surgery (SDC) | payer MEDICARE | END 2022-10-19 23:12 | disposition home or self-care (01) | LOC: WOUND 01:22 | DX: E11.621 Type 2 diabetes mellitus with foot ulcer (principal); L97.522 Non-pressure chronic ulcer of other part of left foot with fat layer exposed; I87.2 Venous insufficiency (chronic) (peripheral); E11.622 Type 2 diabetes mellitus with other skin ulcer; L97.812 Non-pressure chronic ulcer of other part of right lower leg with fat layer exposed; T81.31XD Disruption of external operation (surgical) wound, not elsewhere classified, subsequent encounter; E11.51 Type 2 diabetes mellitus with diabetic peripheral angiopathy without gangrene; Z87.81 Personal history of (healed) traumatic fracture; Z98.890 Other specified postprocedural states; I10 Essential (primary) hypertension; Z95.0 Presence of cardiac pacemaker; I87.313 Chronic venous hypertension (idiopathic) with ulcer of bilateral lower extremity; S91.302D Unspecified open wound, left foot, subsequent encounter | CPT/HCPCS: A9270 ==

== ENCOUNTER 2022-10-26 02:43 | Day surgery (SDC) | payer MEDICARE | END 2022-10-26 22:37 | disposition home or self-care (01) | LOC: WOUND 02:43 | DX: E11.621 Type 2 diabetes mellitus with foot ulcer (principal); L97.522 Non-pressure chronic ulcer of other part of left foot with fat layer exposed; L97.529 Non-pressure chronic ulcer of other part of left foot with unspecified severity; L97.502 Non-pressure chronic ulcer of other part of unspecified foot with fat layer exposed; L97.812 Non-pressure chronic ulcer of other part of right lower leg with fat layer exposed; T81.31XD Disruption of external operation (surgical) wound, not elsewhere classified, subsequent encounter; S91.302D Unspecified open wound, left foot, subsequent encounter; X58.XXXD Exposure to other specified factors, subsequent encounter; I87.2 Venous insufficiency (chronic) (peripheral); E11.21 Type 2 diabetes mellitus with diabetic nephropathy; E11.51 Type 2 diabetes mellitus with diabetic peripheral angiopathy without gangrene; Z87.81 Personal history of (healed) traumatic fracture; Z98.890 Other specified postprocedural states; I10 Essential (primary) hypertension; Z95.0 Presence of cardiac pacemaker; I87.313 Chronic venous hypertension (idiopathic) with ulcer of bilateral lower extremity ==

== ENCOUNTER 2022-11-02 02:22 | Day surgery (SDC) | payer MEDICARE | END 2022-11-02 23:04 | disposition home or self-care (01) | LOC: WOUND 02:22 | DX: I87.313 Chronic venous hypertension (idiopathic) with ulcer of bilateral lower extremity (principal); E11.621 Type 2 diabetes mellitus with foot ulcer; E11.622 Type 2 diabetes mellitus with other skin ulcer; L97.812 Non-pressure chronic ulcer of other part of right lower leg with fat layer exposed; L97.322 Non-pressure chronic ulcer of left ankle with fat layer exposed; L97.529 Non-pressure chronic ulcer of other part of left foot with unspecified severity; T81.31XD Disruption of external operation (surgical) wound, not elsewhere classified, subsequent encounter; E11.21 Type 2 diabetes mellitus with diabetic nephropathy; Z86.31 Personal history of diabetic foot ulcer; E11.51 Type 2 diabetes mellitus with diabetic peripheral angiopathy without gangrene; Z87.81 Personal history of (healed) traumatic fracture; Z98.890 Other specified postprocedural states; I10 Essential (primary) hypertension; Z95.0 Presence of cardiac pacemaker; I87.2 Venous insufficiency (chronic) (peripheral); S91.302D Unspecified open wound, left foot, subsequent encounter ==

== ENCOUNTER 2022-11-09 05:26 | Day surgery (SDC) | payer MEDICARE | END 2022-11-09 22:42 | disposition home or self-care (01) | LOC: WOUND | DX: E11.621 Type 2 diabetes mellitus with foot ulcer (principal); L97.522 Non-pressure chronic ulcer of other part of left foot with fat layer exposed; L97.322 Non-pressure chronic ulcer of left ankle with fat layer exposed; T81.31XD Disruption of external operation (surgical) wound, not elsewhere classified, subsequent encounter; E11.21 Type 2 diabetes mellitus with diabetic nephropathy; E11.51 Type 2 diabetes mellitus with diabetic peripheral angiopathy without gangrene; Z87.81 Personal history of (healed) traumatic fracture; Z98.890 Other specified postprocedural states; I10 Essential (primary) hypertension; I87.313 Chronic venous hypertension (idiopathic) with ulcer of bilateral lower extremity; I87.2 Venous insufficiency (chronic) (peripheral); S91.302D Unspecified open wound, left foot, subsequent encounter; E11.622 Type 2 diabetes mellitus with other skin ulcer | CPT/HCPCS: 93971 ==

== ENCOUNTER 2022-11-16 02:48 | Day surgery (SDC) | payer MEDICARE | END 2022-11-16 22:51 | disposition home or self-care (01) | LOC: WOUND 02:48 | DX: E11.621 Type 2 diabetes mellitus with foot ulcer (principal); L97.522 Non-pressure chronic ulcer of other part of left foot with fat layer exposed; E11.622 Type 2 diabetes mellitus with other skin ulcer; L97.812 Non-pressure chronic ulcer of other part of right lower leg with fat layer exposed; T81.31XD Disruption of external operation (surgical) wound, not elsewhere classified, subsequent encounter; E11.21 Type 2 diabetes mellitus with diabetic nephropathy; E11.51 Type 2 diabetes mellitus with diabetic peripheral angiopathy without gangrene; Z87.81 Personal history of (healed) traumatic fracture; Z98.890 Other specified postprocedural states; I10 Essential (primary) hypertension; Z95.0 Presence of cardiac pacemaker; I87.311 Chronic venous hypertension (idiopathic) with ulcer of right lower extremity; I87.312 Chronic venous hypertension (idiopathic) with ulcer of left lower extremity; S91.302D Unspecified open wound, left foot, subsequent encounter | CPT/HCPCS: G0463 ==

== ENCOUNTER 2022-11-23 01:17 | Day surgery (SDC) | payer MEDICARE | END 2022-11-23 22:46 | disposition home or self-care (01) | LOC: WOUND 01:17 | DX: E11.621 Type 2 diabetes mellitus with foot ulcer (principal); L97.522 Non-pressure chronic ulcer of other part of left foot with fat layer exposed; E11.622 Type 2 diabetes mellitus with other skin ulcer; I87.2 Venous insufficiency (chronic) (peripheral); L97.812 Non-pressure chronic ulcer of other part of right lower leg with fat layer exposed; T81.31XD Disruption of external operation (surgical) wound, not elsewhere classified, subsequent encounter; E11.21 Type 2 diabetes mellitus with diabetic nephropathy; E11.51 Type 2 diabetes mellitus with diabetic peripheral angiopathy without gangrene; Z87.81 Personal history of (healed) traumatic fracture; Z98.890 Other specified postprocedural states; I10 Essential (primary) hypertension; Z95.0 Presence of cardiac pacemaker; I87.313 Chronic venous hypertension (idiopathic) with ulcer of bilateral lower extremity; S91.302D Unspecified open wound, left foot, subsequent encounter | CPT/HCPCS: 93971; G0463 ==

== ENCOUNTER 2022-11-30 02:19 | Day surgery (SDC) | payer MEDICARE | END 2022-11-30 22:59 | disposition home or self-care (01) | LOC: WOUND 02:19 | DX: I87.313 Chronic venous hypertension (idiopathic) with ulcer of bilateral lower extremity (principal); T81.31XA Disruption of external operation (surgical) wound, not elsewhere classified, initial encounter; E11.621 Type 2 diabetes mellitus with foot ulcer; E11.622 Type 2 diabetes mellitus with other skin ulcer; L97.522 Non-pressure chronic ulcer of other part of left foot with fat layer exposed; L97.812 Non-pressure chronic ulcer of other part of right lower leg with fat layer exposed; I10 Essential (primary) hypertension; Z95.0 Presence of cardiac pacemaker; Z86.31 Personal history of diabetic foot ulcer; Z87.81 Personal history of (healed) traumatic fracture; Z98.890 Other specified postprocedural states; Y83.8 Other surgical procedures as the cause of abnormal reaction of the patient, or of later complication, without mention of misadventure at the time of the procedure ==

== ENCOUNTER 2022-12-14 04:39 | Day surgery (SDC) | payer MEDICARE | END 2022-12-14 22:45 | disposition home or self-care (01) | LOC: WOUND 04:39 | DX: I87.313 Chronic venous hypertension (idiopathic) with ulcer of bilateral lower extremity (principal); I10 Essential (primary) hypertension; E11.621 Type 2 diabetes mellitus with foot ulcer; L97.522 Non-pressure chronic ulcer of other part of left foot with fat layer exposed; L97.812 Non-pressure chronic ulcer of other part of right lower leg with fat layer exposed; L89.523 Pressure ulcer of left ankle, stage 3; L97.322 Non-pressure chronic ulcer of left ankle with fat layer exposed; E11.622 Type 2 diabetes mellitus with other skin ulcer; E11.42 Type 2 diabetes mellitus with diabetic polyneuropathy; T81.31XD Disruption of external operation (surgical) wound, not elsewhere classified, subsequent encounter; Z87.81 Personal history of (healed) traumatic fracture; Z98.890 Other specified postprocedural states; Z95.0 Presence of cardiac pacemaker ==

== ENCOUNTER 2022-12-28 02:04 | Day surgery (SDC) | payer MEDICARE | END 2022-12-28 23:37 | disposition home or self-care (01) | LOC: WOUND 02:04 | DX: E11.621 Type 2 diabetes mellitus with foot ulcer (principal); L97.522 Non-pressure chronic ulcer of other part of left foot with fat layer exposed; L89.523 Pressure ulcer of left ankle, stage 3; T81.31XD Disruption of external operation (surgical) wound, not elsewhere classified, subsequent encounter; E11.21 Type 2 diabetes mellitus with diabetic nephropathy; I10 Essential (primary) hypertension; I87.313 Chronic venous hypertension (idiopathic) with ulcer of bilateral lower extremity; Z87.81 Personal history of (healed) traumatic fracture; Z98.890 Other specified postprocedural states | CPT/HCPCS: A9270 ==

== ENCOUNTER 2023-01-04 02:37 | Day surgery (SDC) | payer MEDICARE | END 2023-01-04 23:12 | disposition home or self-care (01) | LOC: WOUND 02:37 | DX: E11.621 Type 2 diabetes mellitus with foot ulcer (principal); L97.522 Non-pressure chronic ulcer of other part of left foot with fat layer exposed; I87.2 Venous insufficiency (chronic) (peripheral); E11.622 Type 2 diabetes mellitus with other skin ulcer; L97.812 Non-pressure chronic ulcer of other part of right lower leg with fat layer exposed; L97.822 Non-pressure chronic ulcer of other part of left lower leg with fat layer exposed; T81.31XD Disruption of external operation (surgical) wound, not elsewhere classified, subsequent encounter; Z86.31 Personal history of diabetic foot ulcer; E11.51 Type 2 diabetes mellitus with diabetic peripheral angiopathy without gangrene; I10 Essential (primary) hypertension; Z95.0 Presence of cardiac pacemaker; I87.313 Chronic venous hypertension (idiopathic) with ulcer of bilateral lower extremity; S91.302D Unspecified open wound, left foot, subsequent encounter | CPT/HCPCS: A9270; G0463 ==

== ENCOUNTER 2023-01-11 05:04 | Day surgery (SDC) | payer MEDICARE | END 2023-01-11 22:49 | disposition home or self-care (01) | LOC: WOUND 05:04 | DX: E11.621 Type 2 diabetes mellitus with foot ulcer (principal); L97.522 Non-pressure chronic ulcer of other part of left foot with fat layer exposed; E11.622 Type 2 diabetes mellitus with other skin ulcer; L97.822 Non-pressure chronic ulcer of other part of left lower leg with fat layer exposed; I87.313 Chronic venous hypertension (idiopathic) with ulcer of bilateral lower extremity; S91.302D Unspecified open wound, left foot, subsequent encounter; I10 Essential (primary) hypertension; E11.21 Type 2 diabetes mellitus with diabetic nephropathy; T81.31XD Disruption of external operation (surgical) wound, not elsewhere classified, subsequent encounter; Z87.81 Personal history of (healed) traumatic fracture; Z98.890 Other specified postprocedural states; Y83.8 Other surgical procedures as the cause of abnormal reaction of the patient, or of later complication, without mention of misadventure at the time of the procedure | CPT/HCPCS: A9270 ==

== ENCOUNTER 2023-01-18 02:33 | Day surgery (SDC) | payer MEDICARE | END 2023-01-18 22:47 | disposition home or self-care (01) | LOC: WOUND 02:33 | DX: T81.31XD Disruption of external operation (surgical) wound, not elsewhere classified, subsequent encounter (principal); E11.621 Type 2 diabetes mellitus with foot ulcer; L97.525 Non-pressure chronic ulcer of other part of left foot with muscle involvement without evidence of necrosis; E11.622 Type 2 diabetes mellitus with other skin ulcer; I87.2 Venous insufficiency (chronic) (peripheral); L97.812 Non-pressure chronic ulcer of other part of right lower leg with fat layer exposed; L97.822 Non-pressure chronic ulcer of other part of left lower leg with fat layer exposed; E11.51 Type 2 diabetes mellitus with diabetic peripheral angiopathy without gangrene; Z87.81 Personal history of (healed) traumatic fracture; Z98.890 Other specified postprocedural states; I10 Essential (primary) hypertension; Z95.0 Presence of cardiac pacemaker; I87.313 Chronic venous hypertension (idiopathic) with ulcer of bilateral lower extremity; S91.302D Unspecified open wound, left foot, subsequent encounter; M25.572 Pain in left ankle and joints of left foot; M19.072 Primary osteoarthritis, left ankle and foot; M77.52 Other enthesopathy of left foot and ankle | CPT/HCPCS: 73630; 87071; 87075; 87077; 87147; 87186; 87205; A9270; G0463 ==

== ENCOUNTER 2023-01-26 03:57 | Day surgery (SDC) | payer MEDICARE | END 2023-01-26 22:39 | disposition home or self-care (01) | LOC: WOUND 03:57 | DX: E11.621 Type 2 diabetes mellitus with foot ulcer (principal); L97.523 Non-pressure chronic ulcer of other part of left foot with necrosis of muscle; E11.622 Type 2 diabetes mellitus with other skin ulcer; L97.822 Non-pressure chronic ulcer of other part of left lower leg with fat layer exposed; L97.812 Non-pressure chronic ulcer of other part of right lower leg with fat layer exposed; T81.31XD Disruption of external operation (surgical) wound, not elsewhere classified, subsequent encounter; E11.21 Type 2 diabetes mellitus with diabetic nephropathy; E11.51 Type 2 diabetes mellitus with diabetic peripheral angiopathy without gangrene; I10 Essential (primary) hypertension; Z95.0 Presence of cardiac pacemaker; I87.313 Chronic venous hypertension (idiopathic) with ulcer of bilateral lower extremity; I87.2 Venous insufficiency (chronic) (peripheral); S91.302D Unspecified open wound, left foot, subsequent encounter; X58.XXXD Exposure to other specified factors, subsequent encounter; Z87.81 Personal history of (healed) traumatic fracture; Z98.890 Other specified postprocedural states | CPT/HCPCS: 36415; 80053; A9270 ==

== ENCOUNTER 2023-02-01 01:57 | Day surgery (SDC) | payer MEDICARE | END 2023-02-01 22:49 | disposition home or self-care (01) | LOC: WOUND 01:57 | DX: E11.621 Type 2 diabetes mellitus with foot ulcer (principal); L97.425 Non-pressure chronic ulcer of left heel and midfoot with muscle involvement without evidence of necrosis; E11.622 Type 2 diabetes mellitus with other skin ulcer; L97.822 Non-pressure chronic ulcer of other part of left lower leg with fat layer exposed; T81.31XD Disruption of external operation (surgical) wound, not elsewhere classified, subsequent encounter; E11.40 Type 2 diabetes mellitus with diabetic neuropathy, unspecified; E11.51 Type 2 diabetes mellitus with diabetic peripheral angiopathy without gangrene; I10 Essential (primary) hypertension; I87.313 Chronic venous hypertension (idiopathic) with ulcer of bilateral lower extremity; Z86.31 Personal history of diabetic foot ulcer; Z87.81 Personal history of (healed) traumatic fracture; Z98.890 Other specified postprocedural states; Z95.0 Presence of cardiac pacemaker; Y83.8 Other surgical procedures as the cause of abnormal reaction of the patient, or of later complication, without mention of misadventure at the time of the procedure | CPT/HCPCS: A9270 ==

== ENCOUNTER 2023-02-08 06:10 | Day surgery (SDC) | payer MEDICARE | END 2023-02-08 22:57 | disposition home or self-care (01) | LOC: WOUND 06:10 | DX: E11.621 Type 2 diabetes mellitus with foot ulcer (principal); L97.525 Non-pressure chronic ulcer of other part of left foot with muscle involvement without evidence of necrosis; L97.522 Non-pressure chronic ulcer of other part of left foot with fat layer exposed; E11.622 Type 2 diabetes mellitus with other skin ulcer; L97.812 Non-pressure chronic ulcer of other part of right lower leg with fat layer exposed; T81.31XD Disruption of external operation (surgical) wound, not elsewhere classified, subsequent encounter; E11.51 Type 2 diabetes mellitus with diabetic peripheral angiopathy without gangrene; I10 Essential (primary) hypertension; I87.313 Chronic venous hypertension (idiopathic) with ulcer of bilateral lower extremity; Z87.81 Personal history of (healed) traumatic fracture; Z98.890 Other specified postprocedural states; Y83.8 Other surgical procedures as the cause of abnormal reaction of the patient, or of later complication, without mention of misadventure at the time of the procedure | CPT/HCPCS: A9270 ==

== ENCOUNTER 2023-02-15 02:27 | Day surgery (SDC) | payer MEDICARE | END 2023-02-15 22:42 | disposition home or self-care (01) | LOC: WOUND 02:27 | DX: E11.621 Type 2 diabetes mellitus with foot ulcer (principal); L97.525 Non-pressure chronic ulcer of other part of left foot with muscle involvement without evidence of necrosis; L97.812 Non-pressure chronic ulcer of other part of right lower leg with fat layer exposed; L97.822 Non-pressure chronic ulcer of other part of left lower leg with fat layer exposed; I87.2 Venous insufficiency (chronic) (peripheral); T81.31XD Disruption of external operation (surgical) wound, not elsewhere classified, subsequent encounter; E11.21 Type 2 diabetes mellitus with diabetic nephropathy; E11.51 Type 2 diabetes mellitus with diabetic peripheral angiopathy without gangrene; Z87.81 Personal history of (healed) traumatic fracture; Z98.890 Other specified postprocedural states; I10 Essential (primary) hypertension; Z95.0 Presence of cardiac pacemaker; I87.313 Chronic venous hypertension (idiopathic) with ulcer of bilateral lower extremity; S91.302D Unspecified open wound, left foot, subsequent encounter | CPT/HCPCS: A9270 ==

== ENCOUNTER 2023-02-20 03:00 | Day surgery (SDC) | payer MEDICARE | END 2023-02-20 22:56 | disposition home or self-care (01) | LOC: WOUND 03:00 | DX: E11.621 Type 2 diabetes mellitus with foot ulcer (principal); L97.423 Non-pressure chronic ulcer of left heel and midfoot with necrosis of muscle; E11.622 Type 2 diabetes mellitus with other skin ulcer; L97.812 Non-pressure chronic ulcer of other part of right lower leg with fat layer exposed; T81.31XD Disruption of external operation (surgical) wound, not elsewhere classified, subsequent encounter; I87.313 Chronic venous hypertension (idiopathic) with ulcer of bilateral lower extremity; E11.21 Type 2 diabetes mellitus with diabetic nephropathy; E11.51 Type 2 diabetes mellitus with diabetic peripheral angiopathy without gangrene; I10 Essential (primary) hypertension; Z86.31 Personal history of diabetic foot ulcer; Z87.81 Personal history of (healed) traumatic fracture; Z95.0 Presence of cardiac pacemaker; Z98.890 Other specified postprocedural states; Y83.8 Other surgical procedures as the cause of abnormal reaction of the patient, or of later complication, without mention of misadventure at the time of the procedure | CPT/HCPCS: A9270 ==

== ENCOUNTER 2023-02-20 09:04 | Day surgery (SDC) | payer MEDICARE | END 2023-02-20 22:56 | disposition home or self-care (01) | LOC: HBO 09:04 | DX: I87.313 Chronic venous hypertension (idiopathic) with ulcer of bilateral lower extremity (principal); E11.621 Type 2 diabetes mellitus with foot ulcer; T81.31XD Disruption of external operation (surgical) wound, not elsewhere classified, subsequent encounter; E11.21 Type 2 diabetes mellitus with diabetic nephropathy; E11.51 Type 2 diabetes mellitus with diabetic peripheral angiopathy without gangrene; I10 Essential (primary) hypertension; Z95.0 Presence of cardiac pacemaker; Z86.31 Personal history of diabetic foot ulcer; Z87.81 Personal history of (healed) traumatic fracture; Z98.890 Other specified postprocedural states; Y83.8 Other surgical procedures as the cause of abnormal reaction of the patient, or of later complication, without mention of misadventure at the time of the procedure; L97.423 Non-pressure chronic ulcer of left heel and midfoot with necrosis of muscle; E11.622 Type 2 diabetes mellitus with other skin ulcer; L97.812 Non-pressure chronic ulcer of other part of right lower leg with fat layer exposed | CPT/HCPCS: 82947; A9270; G0277 ==

== ENCOUNTER 2023-02-21 01:20 | Day surgery (SDC) | payer MEDICARE, OTHER | END 2023-02-21 22:48 | disposition home or self-care (01) | LOC: HBO 01:20 | DX: I87.313 Chronic venous hypertension (idiopathic) with ulcer of bilateral lower extremity (principal); E11.621 Type 2 diabetes mellitus with foot ulcer; T81.31XD Disruption of external operation (surgical) wound, not elsewhere classified, subsequent encounter; E11.21 Type 2 diabetes mellitus with diabetic nephropathy; E11.51 Type 2 diabetes mellitus with diabetic peripheral angiopathy without gangrene; I10 Essential (primary) hypertension; Y83.8 Other surgical procedures as the cause of abnormal reaction of the patient, or of later complication, without mention of misadventure at the time of the procedure; Z86.31 Personal history of diabetic foot ulcer; Z87.81 Personal history of (healed) traumatic fracture; Z98.890 Other specified postprocedural states | CPT/HCPCS: 82947; G0277 ==

== ENCOUNTER 2023-02-23 02:20 | Day surgery (SDC) | payer MEDICARE, OTHER | END 2023-02-23 22:47 | disposition home or self-care (01) | LOC: HBO 02:20 | DX: E11.621 Type 2 diabetes mellitus with foot ulcer (principal); L97.529 Non-pressure chronic ulcer of other part of left foot with unspecified severity; T81.31XD Disruption of external operation (surgical) wound, not elsewhere classified, subsequent encounter; S91.302D Unspecified open wound, left foot, subsequent encounter; X58.XXXD Exposure to other specified factors, subsequent encounter; E11.21 Type 2 diabetes mellitus with diabetic nephropathy; E11.51 Type 2 diabetes mellitus with diabetic peripheral angiopathy without gangrene; I10 Essential (primary) hypertension; Z95.0 Presence of cardiac pacemaker; I87.313 Chronic venous hypertension (idiopathic) with ulcer of bilateral lower extremity; I87.2 Venous insufficiency (chronic) (peripheral); Z87.81 Personal history of (healed) traumatic fracture; Z98.890 Other specified postprocedural states | CPT/HCPCS: 82947; G0277 ==

== ENCOUNTER 2023-02-24 03:47 | Day surgery (SDC) | payer MEDICARE, OTHER | END 2023-02-24 22:49 | disposition home or self-care (01) | LOC: HBO 03:47 | DX: E11.621 Type 2 diabetes mellitus with foot ulcer (principal); T81.31XD Disruption of external operation (surgical) wound, not elsewhere classified, subsequent encounter; E11.21 Type 2 diabetes mellitus with diabetic nephropathy; S91.302D Unspecified open wound, left foot, subsequent encounter; E11.51 Type 2 diabetes mellitus with diabetic peripheral angiopathy without gangrene; Z87.81 Personal history of (healed) traumatic fracture; Z98.890 Other specified postprocedural states; I10 Essential (primary) hypertension; Z95.0 Presence of cardiac pacemaker; I87.313 Chronic venous hypertension (idiopathic) with ulcer of bilateral lower extremity; I87.2 Venous insufficiency (chronic) (peripheral) | CPT/HCPCS: 82947; G0277 ==

== ENCOUNTER 2023-02-27 03:40 | Day surgery (SDC) | payer MEDICARE ==
[2023-02-27] MEDS ORDERED: Acetaminophen650 M1 PO (10:57)
== END 2023-02-27 22:50 | disposition home or self-care (01) ==
LOC: HBO 03:40
DX: E11.621 Type 2 diabetes mellitus with foot ulcer (principal); T81.31XD Disruption of external operation (surgical) wound, not elsewhere classified, subsequent encounter; E11.21 Type 2 diabetes mellitus with diabetic nephropathy; S91.302D Unspecified open wound, left foot, subsequent encounter; Z86.31 Personal history of diabetic foot ulcer; E11.51 Type 2 diabetes mellitus with diabetic peripheral angiopathy without gangrene; I87.311 Chronic venous hypertension (idiopathic) with ulcer of right lower extremity; I87.312 Chronic venous hypertension (idiopathic) with ulcer of left lower extremity; Z87.81 Personal history of (healed) traumatic fracture; Z98.890 Other specified postprocedural states; I10 Essential (primary) hypertension; Z95.0 Presence of cardiac pacemaker; I87.2 Venous insufficiency (chronic) (peripheral); M25.572 Pain in left ankle and joints of left foot
CPT/HCPCS: 82947

== ENCOUNTER 2023-02-27 04:17 | Day surgery (SDC) | payer MEDICARE ==
--- NOTE | 2023-02-27 09:20 | NUR ---
Upon responding to a rapid response for the wound center, I visited witht he patient's son, Jose. I provide a calming presence and therapeutic listening with Jose while the patient is being attended to until the patient is stabilized. Jose showed signs of greater peace due to spiritual care presence.
[2023-02-27] MEDS ORDERED: Acetaminophen650 M1 PO (10:57)
== END 2023-02-27 22:50 | disposition home or self-care (01) ==
LOC: WOUND 04:17
DX: E11.621 Type 2 diabetes mellitus with foot ulcer (principal); L97.524 Non-pressure chronic ulcer of other part of left foot with necrosis of bone; L97.522 Non-pressure chronic ulcer of other part of left foot with fat layer exposed; E11.622 Type 2 diabetes mellitus with other skin ulcer; L97.812 Non-pressure chronic ulcer of other part of right lower leg with fat layer exposed; L97.822 Non-pressure chronic ulcer of other part of left lower leg with fat layer exposed; I87.313 Chronic venous hypertension (idiopathic) with ulcer of bilateral lower extremity; E11.21 Type 2 diabetes mellitus with diabetic nephropathy; E11.51 Type 2 diabetes mellitus with diabetic peripheral angiopathy without gangrene; I10 Essential (primary) hypertension; T81.31XD Disruption of external operation (surgical) wound, not elsewhere classified, subsequent encounter; Y83.8 Other surgical procedures as the cause of abnormal reaction of the patient, or of later complication, without mention of misadventure at the time of the procedure; Z86.31 Personal history of diabetic foot ulcer; Z87.81 Personal history of (healed) traumatic fracture; Z98.890 Other specified postprocedural states; Z95.0 Presence of cardiac pacemaker
CPT/HCPCS: G0463

== ENCOUNTER 2023-02-27 09:59 | Emergency (ER) | payer MEDICARE ==
[~2023-02-27] VITALS: Ht 182.9 cm; Wt 158.8 kg
[2023-02-27 10:45] LABS: BASOPHILS ABSOLUTE AUTO 0.04 K/mm3 (0.00-0.23); BASOPHILS PERCENT AUTO 1 % (0-2); EOSINOPHILS ABSOLUTE AUTO 0.14 K/mm3 (0.00-0.68); EOSINOPHILS PERCENT AUTO 2 % (0-6); Hematocrit 38.1 % (37.0-53.0); Hemoglobin 11.3 g/dL (13.5-17.5); IMMATURE GRAN ABSOLUTE AUTO 0.02 K/mm3 (0.00-0.10); IMMATURE GRAN PERCENT AUTO 0 % (0-1); LYMPHOCYTES ABSOLUTE AUTO 1.68 K/mm3 (0.84-5.20); LYMPHOCYTES PERCENT AUTO 24 % (21-46); MONOCYTES PERCENT AUTO 7 % (4-13); Mean Corpuscular HGB 26.2 pg (26.0-34.0); Mean Corpuscular HGB Conc 29.7 g/dL (31.5-36.5); Mean Corpuscular Volume 88 fL (80-100); Mean Platelet Volume 9.9 fL (9.1-12.4); NEUTROPHILS ABSOLUTE AUTO 4.64 K/mm3 (1.96-9.15); NEUTROPHILS PERCENT AUTO 66 % (41-73); Platelet Count 238 K/mm3 (150-400); RDW Coefficient Variation 17.9 % (11.7-14.2); RDW Standard Deviation 57.9 fL (35.1-46.3); Red Blood Cell Count 4.31 M/mm3 (4.30-5.90); White Blood Cell Count 7.02 K/mm3 (4.00-11.30)
[2023-02-27] MEDS ORDERED: Acetaminophen650 M1 PO (10:57)
[2023-02-27 11:03] LABS: Albumin, Blood 3.2 g/dL (3.4-5.0); Albumin/Globulin Ratio 0.7 (0.8-1.8); Bilirubin, Total 0.4 mg/dL (0.1-1.0); Bun/Creatinine Ratio 20.1 (12.0-20.0); Calcium, Blood 8.6 mg/dL (8.5-10.1); Creatinine, Blood 1.94 mg/dL (0.60-1.20); Globulin, Blood 4.5 g/dL (2.2-4.0); Potassium, Blood 5.1 mmol/L (3.5-5.5); Total Protein, Blood 7.7 g/dL (6.4-8.2)
[2023-02-27 11:05] LABS: Albumin, Blood 3.1 g/dL (3.4-5.0); Albumin/Globulin Ratio 0.7 (0.8-1.8); Bilirubin, Direct 0.2 mg/dL (0.0-0.3); Bilirubin, Indirect 0.3 mg/dL (0.1-0.7); Bilirubin, Total 0.5 mg/dL (0.1-1.0); Globulin, Blood 4.5 g/dL (2.2-4.0); Magnesium, Blood 2.2 mg/dL (1.6-2.4); Phosphorus, Blood 3.8 mg/dL (2.5-4.9); Total Protein, Blood 7.6 g/dL (6.4-8.2)
[2023-02-27 11:48] LABS: International Normalized Ratio 1.43; Prothrombin Time Results 14.7 Sec (9.7-11.5)
[2023-02-27 13:00] VITALS: BP 127/56
== END 2023-02-27 13:21 | disposition home or self-care (01) ==
LOC: ER 09:59
PROVIDERS: Emergency Medicine; Physician Assistant
DX: R03.1 Nonspecific low blood-pressure reading (principal); I48.91 Unspecified atrial fibrillation; I12.9 Hypertensive chronic kidney disease with stage 1 through stage 4 chronic kidney disease, or unspecified chronic kidney disease; E11.22 Type 2 diabetes mellitus with diabetic chronic kidney disease; N18.9 Chronic kidney disease, unspecified; Z87.891 Personal history of nicotine dependence; Z95.0 Presence of cardiac pacemaker; Z88.6 Allergy status to analgesic agent; Z88.5 Allergy status to narcotic agent; Z79.899 Other long term (current) drug therapy; Z79.82 Long term (current) use of aspirin; Z79.84 Long term (current) use of oral hypoglycemic drugs
CPT/HCPCS: 36415; 80053; 80076; 83605; 83690; 83735; 84100; 85025; 85610; 85730; 93005; 93010; 99285-25

== ENCOUNTER 2023-03-01 02:12 | Day surgery (SDC) | payer MEDICARE, OTHER ==
[~2023-03-01 02:12] MED LIST changes: +Acetaminophen650 M1 PO
== END 2023-03-01 22:44 | disposition home or self-care (01) ==
LOC: HBO 02:12
DX: I87.313 Chronic venous hypertension (idiopathic) with ulcer of bilateral lower extremity (principal); E11.621 Type 2 diabetes mellitus with foot ulcer; E11.21 Type 2 diabetes mellitus with diabetic nephropathy; E11.51 Type 2 diabetes mellitus with diabetic peripheral angiopathy without gangrene; T81.31XD Disruption of external operation (surgical) wound, not elsewhere classified, subsequent encounter; I10 Essential (primary) hypertension; Z86.31 Personal history of diabetic foot ulcer; Z87.81 Personal history of (healed) traumatic fracture; Z95.0 Presence of cardiac pacemaker; Z98.890 Other specified postprocedural states; Y83.8 Other surgical procedures as the cause of abnormal reaction of the patient, or of later complication, without mention of misadventure at the time of the procedure; L97.529 Non-pressure chronic ulcer of other part of left foot with unspecified severity
CPT/HCPCS: 82947; G0277

== ENCOUNTER 2023-03-02 01:21 | Day surgery (SDC) | payer MEDICARE, OTHER | END 2023-03-02 22:51 | disposition home or self-care (01) | LOC: HBO 01:21 | DX: E11.621 Type 2 diabetes mellitus with foot ulcer (principal); L97.529 Non-pressure chronic ulcer of other part of left foot with unspecified severity; T81.31XD Disruption of external operation (surgical) wound, not elsewhere classified, subsequent encounter; S91.302D Unspecified open wound, left foot, subsequent encounter; X58.XXXD Exposure to other specified factors, subsequent encounter; E11.21 Type 2 diabetes mellitus with diabetic nephropathy; E11.51 Type 2 diabetes mellitus with diabetic peripheral angiopathy without gangrene; Z87.81 Personal history of (healed) traumatic fracture; Z98.890 Other specified postprocedural states; I10 Essential (primary) hypertension; Z95.0 Presence of cardiac pacemaker; I87.313 Chronic venous hypertension (idiopathic) with ulcer of bilateral lower extremity; I87.2 Venous insufficiency (chronic) (peripheral) | CPT/HCPCS: 82947; G0277 ==

== ENCOUNTER 2023-03-03 03:04 | Day surgery (SDC) | payer MEDICARE, OTHER | END 2023-03-03 23:00 | disposition home or self-care (01) | LOC: HBO 03:04 | DX: I87.313 Chronic venous hypertension (idiopathic) with ulcer of bilateral lower extremity (principal); E11.621 Type 2 diabetes mellitus with foot ulcer; T81.31XD Disruption of external operation (surgical) wound, not elsewhere classified, subsequent encounter; E11.21 Type 2 diabetes mellitus with diabetic nephropathy; E11.51 Type 2 diabetes mellitus with diabetic peripheral angiopathy without gangrene; I10 Essential (primary) hypertension; Z95.0 Presence of cardiac pacemaker; Z86.31 Personal history of diabetic foot ulcer; Z87.81 Personal history of (healed) traumatic fracture; Z98.890 Other specified postprocedural states; L97.529 Non-pressure chronic ulcer of other part of left foot with unspecified severity | CPT/HCPCS: 82947; G0277 ==

== ENCOUNTER 2023-03-06 04:29 | Day surgery (SDC) | payer MEDICARE | END 2023-03-06 23:07 | disposition home or self-care (01) | LOC: WOUND 04:29 | DX: E11.621 Type 2 diabetes mellitus with foot ulcer (principal); L97.523 Non-pressure chronic ulcer of other part of left foot with necrosis of muscle; E11.622 Type 2 diabetes mellitus with other skin ulcer; L97.812 Non-pressure chronic ulcer of other part of right lower leg with fat layer exposed; L97.822 Non-pressure chronic ulcer of other part of left lower leg with fat layer exposed; I87.313 Chronic venous hypertension (idiopathic) with ulcer of bilateral lower extremity; T81.31XD Disruption of external operation (surgical) wound, not elsewhere classified, subsequent encounter; E11.21 Type 2 diabetes mellitus with diabetic nephropathy; S91.302D Unspecified open wound, left foot, subsequent encounter; E11.51 Type 2 diabetes mellitus with diabetic peripheral angiopathy without gangrene; I10 Essential (primary) hypertension; Z86.31 Personal history of diabetic foot ulcer; Z87.81 Personal history of (healed) traumatic fracture; Z95.0 Presence of cardiac pacemaker; Z98.890 Other specified postprocedural states; Y83.8 Other surgical procedures as the cause of abnormal reaction of the patient, or of later complication, without mention of misadventure at the time of the procedure; X58.XXXD Exposure to other specified factors, subsequent encounter | CPT/HCPCS: A9270 ==

== ENCOUNTER 2023-03-06 04:33 | Day surgery (SDC) | payer MEDICARE | END 2023-03-06 23:07 | disposition home or self-care (01) | LOC: HBO 04:33 | DX: E11.621 Type 2 diabetes mellitus with foot ulcer (principal); L97.509 Non-pressure chronic ulcer of other part of unspecified foot with unspecified severity; T81.31XD Disruption of external operation (surgical) wound, not elsewhere classified, subsequent encounter; S91.302D Unspecified open wound, left foot, subsequent encounter; E11.51 Type 2 diabetes mellitus with diabetic peripheral angiopathy without gangrene; Z87.81 Personal history of (healed) traumatic fracture; Z98.890 Other specified postprocedural states; I10 Essential (primary) hypertension; Z95.0 Presence of cardiac pacemaker; I87.313 Chronic venous hypertension (idiopathic) with ulcer of bilateral lower extremity; I87.2 Venous insufficiency (chronic) (peripheral); L97.523 Non-pressure chronic ulcer of other part of left foot with necrosis of muscle; E11.622 Type 2 diabetes mellitus with other skin ulcer; L97.812 Non-pressure chronic ulcer of other part of right lower leg with fat layer exposed; L97.822 Non-pressure chronic ulcer of other part of left lower leg with fat layer exposed; E11.21 Type 2 diabetes mellitus with diabetic nephropathy; Z86.31 Personal history of diabetic foot ulcer; Y83.8 Other surgical procedures as the cause of abnormal reaction of the patient, or of later complication, without mention of misadventure at the time of the procedure; X58.XXXD Exposure to other specified factors, subsequent encounter | CPT/HCPCS: 82947; A9270; G0277 ==

== ENCOUNTER 2023-03-07 04:29 | Day surgery (SDC) | payer MEDICARE, OTHER | END 2023-03-07 22:41 | disposition home or self-care (01) | LOC: HBO 04:29 | DX: I87.313 Chronic venous hypertension (idiopathic) with ulcer of bilateral lower extremity (principal); E11.621 Type 2 diabetes mellitus with foot ulcer; T81.31XD Disruption of external operation (surgical) wound, not elsewhere classified, subsequent encounter; E11.21 Type 2 diabetes mellitus with diabetic nephropathy; E11.51 Type 2 diabetes mellitus with diabetic peripheral angiopathy without gangrene; I10 Essential (primary) hypertension; Z86.31 Personal history of diabetic foot ulcer; Z87.81 Personal history of (healed) traumatic fracture; Z98.890 Other specified postprocedural states; Z95.0 Presence of cardiac pacemaker; Y83.8 Other surgical procedures as the cause of abnormal reaction of the patient, or of later complication, without mention of misadventure at the time of the procedure | CPT/HCPCS: 82947; G0277 ==

== ENCOUNTER 2023-03-08 03:18 | Day surgery (SDC) | payer MEDICARE, OTHER | END 2023-03-08 22:50 | disposition home or self-care (01) | LOC: HBO 03:18 | DX: E11.621 Type 2 diabetes mellitus with foot ulcer (principal); T81.31XD Disruption of external operation (surgical) wound, not elsewhere classified, subsequent encounter; E11.21 Type 2 diabetes mellitus with diabetic nephropathy; S91.302D Unspecified open wound, left foot, subsequent encounter; E11.51 Type 2 diabetes mellitus with diabetic peripheral angiopathy without gangrene; Z87.81 Personal history of (healed) traumatic fracture; Z98.890 Other specified postprocedural states; I10 Essential (primary) hypertension; Z95.0 Presence of cardiac pacemaker; I87.313 Chronic venous hypertension (idiopathic) with ulcer of bilateral lower extremity; I87.2 Venous insufficiency (chronic) (peripheral) | CPT/HCPCS: 82947; G0277 ==

== ENCOUNTER 2023-03-09 02:55 | Day surgery (SDC) | payer MEDICARE, OTHER | END 2023-03-09 22:56 | disposition home or self-care (01) | LOC: HBO 02:55 | DX: E11.621 Type 2 diabetes mellitus with foot ulcer (principal); L97.529 Non-pressure chronic ulcer of other part of left foot with unspecified severity; T81.31XD Disruption of external operation (surgical) wound, not elsewhere classified, subsequent encounter; Y83.8 Other surgical procedures as the cause of abnormal reaction of the patient, or of later complication, without mention of misadventure at the time of the procedure; E11.21 Type 2 diabetes mellitus with diabetic nephropathy; S91.302D Unspecified open wound, left foot, subsequent encounter; X58.XXXD Exposure to other specified factors, subsequent encounter; Z86.31 Personal history of diabetic foot ulcer; E11.51 Type 2 diabetes mellitus with diabetic peripheral angiopathy without gangrene; I10 Essential (primary) hypertension; Z96.0 Presence of urogenital implants; I87.313 Chronic venous hypertension (idiopathic) with ulcer of bilateral lower extremity; I87.2 Venous insufficiency (chronic) (peripheral); Z87.81 Personal history of (healed) traumatic fracture; Z98.890 Other specified postprocedural states | CPT/HCPCS: 82947; G0277 ==

== ENCOUNTER 2023-03-10 04:04 | Day surgery (SDC) | payer MEDICARE, OTHER | END 2023-03-10 22:42 | disposition home or self-care (01) | LOC: HBO 04:04 | DX: I87.313 Chronic venous hypertension (idiopathic) with ulcer of bilateral lower extremity (principal); E11.621 Type 2 diabetes mellitus with foot ulcer; T81.31XD Disruption of external operation (surgical) wound, not elsewhere classified, subsequent encounter; E11.21 Type 2 diabetes mellitus with diabetic nephropathy; S91.302D Unspecified open wound, left foot, subsequent encounter; E11.51 Type 2 diabetes mellitus with diabetic peripheral angiopathy without gangrene; I10 Essential (primary) hypertension; Z86.31 Personal history of diabetic foot ulcer; Z87.81 Personal history of (healed) traumatic fracture; Z95.0 Presence of cardiac pacemaker; Z98.890 Other specified postprocedural states; Y83.8 Other surgical procedures as the cause of abnormal reaction of the patient, or of later complication, without mention of misadventure at the time of the procedure; X58.XXXD Exposure to other specified factors, subsequent encounter | CPT/HCPCS: 82947; G0277 ==

== ENCOUNTER 2023-03-13 02:01 | Day surgery (SDC) | payer MEDICARE | END 2023-03-13 22:49 | disposition home or self-care (01) | LOC: WOUND 02:01 | DX: E11.621 Type 2 diabetes mellitus with foot ulcer (principal); L97.422 Non-pressure chronic ulcer of left heel and midfoot with fat layer exposed; I87.313 Chronic venous hypertension (idiopathic) with ulcer of bilateral lower extremity; T81.31XD Disruption of external operation (surgical) wound, not elsewhere classified, subsequent encounter; E11.622 Type 2 diabetes mellitus with other skin ulcer; L97.822 Non-pressure chronic ulcer of other part of left lower leg with fat layer exposed; L97.812 Non-pressure chronic ulcer of other part of right lower leg with fat layer exposed; E11.21 Type 2 diabetes mellitus with diabetic nephropathy; S91.302D Unspecified open wound, left foot, subsequent encounter; E11.51 Type 2 diabetes mellitus with diabetic peripheral angiopathy without gangrene; Z86.31 Personal history of diabetic foot ulcer; Z87.81 Personal history of (healed) traumatic fracture; Z98.890 Other specified postprocedural states; Y83.8 Other surgical procedures as the cause of abnormal reaction of the patient, or of later complication, without mention of misadventure at the time of the procedure | CPT/HCPCS: A9270 ==

== ENCOUNTER 2023-03-13 02:06 | Day surgery (SDC) | payer MEDICARE | END 2023-03-13 22:50 | disposition home or self-care (01) | LOC: HBO 02:06 | DX: E11.621 Type 2 diabetes mellitus with foot ulcer (principal); T81.31XD Disruption of external operation (surgical) wound, not elsewhere classified, subsequent encounter; E11.21 Type 2 diabetes mellitus with diabetic nephropathy; S91.302D Unspecified open wound, left foot, subsequent encounter; E11.51 Type 2 diabetes mellitus with diabetic peripheral angiopathy without gangrene; Z87.81 Personal history of (healed) traumatic fracture; Z98.890 Other specified postprocedural states; I10 Essential (primary) hypertension; Z95.0 Presence of cardiac pacemaker; I87.313 Chronic venous hypertension (idiopathic) with ulcer of bilateral lower extremity; I87.2 Venous insufficiency (chronic) (peripheral); L97.422 Non-pressure chronic ulcer of left heel and midfoot with fat layer exposed; E11.622 Type 2 diabetes mellitus with other skin ulcer; L97.822 Non-pressure chronic ulcer of other part of left lower leg with fat layer exposed; L97.812 Non-pressure chronic ulcer of other part of right lower leg with fat layer exposed; Z86.31 Personal history of diabetic foot ulcer; Y83.8 Other surgical procedures as the cause of abnormal reaction of the patient, or of later complication, without mention of misadventure at the time of the procedure | CPT/HCPCS: 82947; A9270; G0277 ==

== ENCOUNTER 2023-03-14 00:49 | Day surgery (SDC) | payer MEDICARE, OTHER | END 2023-03-14 22:50 | disposition home or self-care (01) | LOC: HBO 00:49 | DX: I87.313 Chronic venous hypertension (idiopathic) with ulcer of bilateral lower extremity (principal); E11.621 Type 2 diabetes mellitus with foot ulcer; T81.31XD Disruption of external operation (surgical) wound, not elsewhere classified, subsequent encounter; E11.21 Type 2 diabetes mellitus with diabetic nephropathy; S91.302D Unspecified open wound, left foot, subsequent encounter; Z86.31 Personal history of diabetic foot ulcer; E11.51 Type 2 diabetes mellitus with diabetic peripheral angiopathy without gangrene; I10 Essential (primary) hypertension; Z95.0 Presence of cardiac pacemaker; Z87.81 Personal history of (healed) traumatic fracture; Z98.890 Other specified postprocedural states; Y83.8 Other surgical procedures as the cause of abnormal reaction of the patient, or of later complication, without mention of misadventure at the time of the procedure; X58.XXXD Exposure to other specified factors, subsequent encounter | CPT/HCPCS: 82947; G0277 ==

== ENCOUNTER 2023-03-15 01:21 | Day surgery (SDC) | payer MEDICARE, OTHER | END 2023-03-15 22:45 | disposition home or self-care (01) | LOC: HBO 01:21 | DX: I87.313 Chronic venous hypertension (idiopathic) with ulcer of bilateral lower extremity (principal); E11.621 Type 2 diabetes mellitus with foot ulcer; T81.31XD Disruption of external operation (surgical) wound, not elsewhere classified, subsequent encounter; E11.21 Type 2 diabetes mellitus with diabetic nephropathy; S91.302D Unspecified open wound, left foot, subsequent encounter; E11.51 Type 2 diabetes mellitus with diabetic peripheral angiopathy without gangrene; I10 Essential (primary) hypertension; Z95.0 Presence of cardiac pacemaker; Z86.31 Personal history of diabetic foot ulcer; Z87.81 Personal history of (healed) traumatic fracture; Z98.890 Other specified postprocedural states; Y83.8 Other surgical procedures as the cause of abnormal reaction of the patient, or of later complication, without mention of misadventure at the time of the procedure; X58.XXXD Exposure to other specified factors, subsequent encounter; L97.529 Non-pressure chronic ulcer of other part of left foot with unspecified severity | CPT/HCPCS: 82947; G0277 ==

== ENCOUNTER 2023-03-16 04:36 | Day surgery (SDC) | payer MEDICARE, OTHER | END 2023-03-16 22:58 | disposition home or self-care (01) | LOC: HBO 04:36 | DX: E11.621 Type 2 diabetes mellitus with foot ulcer (principal); L97.529 Non-pressure chronic ulcer of other part of left foot with unspecified severity; T81.31XD Disruption of external operation (surgical) wound, not elsewhere classified, subsequent encounter; I87.313 Chronic venous hypertension (idiopathic) with ulcer of bilateral lower extremity; E11.21 Type 2 diabetes mellitus with diabetic nephropathy; S91.302D Unspecified open wound, left foot, subsequent encounter; X58.XXXD Exposure to other specified factors, subsequent encounter; Z86.31 Personal history of diabetic foot ulcer; E11.51 Type 2 diabetes mellitus with diabetic peripheral angiopathy without gangrene; Z87.81 Personal history of (healed) traumatic fracture; Z98.890 Other specified postprocedural states; I10 Essential (primary) hypertension; Z95.0 Presence of cardiac pacemaker; I87.2 Venous insufficiency (chronic) (peripheral) | CPT/HCPCS: 82947; G0277 ==

== ENCOUNTER 2023-03-17 03:06 | Day surgery (SDC) | payer MEDICARE, OTHER | END 2023-03-17 23:55 | disposition home or self-care (01) | LOC: HBO 03:06 | DX: E11.621 Type 2 diabetes mellitus with foot ulcer (principal); T81.31XD Disruption of external operation (surgical) wound, not elsewhere classified, subsequent encounter; E11.21 Type 2 diabetes mellitus with diabetic nephropathy; S91.302D Unspecified open wound, left foot, subsequent encounter; Z86.31 Personal history of diabetic foot ulcer; E11.51 Type 2 diabetes mellitus with diabetic peripheral angiopathy without gangrene; Z87.81 Personal history of (healed) traumatic fracture; I10 Essential (primary) hypertension; Z95.0 Presence of cardiac pacemaker; I87.313 Chronic venous hypertension (idiopathic) with ulcer of bilateral lower extremity; I87.2 Venous insufficiency (chronic) (peripheral) | CPT/HCPCS: 82947; G0277 ==

== ENCOUNTER 2023-03-29 02:48 | Day surgery (SDC) | payer OTHER | END 2023-03-29 22:41 | disposition home or self-care (01) | LOC: WOUND 02:48 | DX: E11.621 Type 2 diabetes mellitus with foot ulcer (principal); L97.522 Non-pressure chronic ulcer of other part of left foot with fat layer exposed; T81.31XD Disruption of external operation (surgical) wound, not elsewhere classified, subsequent encounter; E11.622 Type 2 diabetes mellitus with other skin ulcer; L97.812 Non-pressure chronic ulcer of other part of right lower leg with fat layer exposed; L97.822 Non-pressure chronic ulcer of other part of left lower leg with fat layer exposed; I10 Essential (primary) hypertension; I87.313 Chronic venous hypertension (idiopathic) with ulcer of bilateral lower extremity; Z86.31 Personal history of diabetic foot ulcer; Z87.81 Personal history of (healed) traumatic fracture; Z95.0 Presence of cardiac pacemaker; Z98.890 Other specified postprocedural states; Y83.8 Other surgical procedures as the cause of abnormal reaction of the patient, or of later complication, without mention of misadventure at the time of the procedure | CPT/HCPCS: A9270; G0463 ==

== ENCOUNTER 2023-04-03 04:33 | Day surgery (SDC) | payer OTHER | END 2023-04-03 22:38 | disposition home or self-care (01) | LOC: WOUND 04:33 | DX: E11.621 Type 2 diabetes mellitus with foot ulcer (principal); E11.622 Type 2 diabetes mellitus with other skin ulcer; L97.812 Non-pressure chronic ulcer of other part of right lower leg with fat layer exposed; L97.522 Non-pressure chronic ulcer of other part of left foot with fat layer exposed; I87.2 Venous insufficiency (chronic) (peripheral); T81.31XD Disruption of external operation (surgical) wound, not elsewhere classified, subsequent encounter; E11.21 Type 2 diabetes mellitus with diabetic nephropathy; S91.302D Unspecified open wound, left foot, subsequent encounter; E11.51 Type 2 diabetes mellitus with diabetic peripheral angiopathy without gangrene; Z87.81 Personal history of (healed) traumatic fracture; I10 Essential (primary) hypertension; Z95.0 Presence of cardiac pacemaker; I87.313 Chronic venous hypertension (idiopathic) with ulcer of bilateral lower extremity | CPT/HCPCS: A9270 ==

== ENCOUNTER 2023-04-03 04:44 | Day surgery (SDC) | payer OTHER | END 2023-04-03 22:38 | disposition home or self-care (01) | LOC: HBO 04:44 | DX: I87.313 Chronic venous hypertension (idiopathic) with ulcer of bilateral lower extremity (principal); E11.621 Type 2 diabetes mellitus with foot ulcer; T81.31XD Disruption of external operation (surgical) wound, not elsewhere classified, subsequent encounter; E11.21 Type 2 diabetes mellitus with diabetic nephropathy; S91.302D Unspecified open wound, left foot, subsequent encounter; E11.51 Type 2 diabetes mellitus with diabetic peripheral angiopathy without gangrene; I10 Essential (primary) hypertension; E11.622 Type 2 diabetes mellitus with other skin ulcer; L97.812 Non-pressure chronic ulcer of other part of right lower leg with fat layer exposed; L97.522 Non-pressure chronic ulcer of other part of left foot with fat layer exposed; I87.2 Venous insufficiency (chronic) (peripheral); Z95.0 Presence of cardiac pacemaker; Z86.31 Personal history of diabetic foot ulcer; Z87.81 Personal history of (healed) traumatic fracture; Z98.890 Other specified postprocedural states; Y83.8 Other surgical procedures as the cause of abnormal reaction of the patient, or of later complication, without mention of misadventure at the time of the procedure; X58.XXXD Exposure to other specified factors, subsequent encounter | CPT/HCPCS: 82947; A9270; G0277 ==

== ENCOUNTER 2023-04-04 00:29 | Day surgery (SDC) | payer OTHER | END 2023-04-04 22:39 | disposition home or self-care (01) | LOC: HBO 00:29 | DX: I87.313 Chronic venous hypertension (idiopathic) with ulcer of bilateral lower extremity (principal); E11.621 Type 2 diabetes mellitus with foot ulcer; T81.31XD Disruption of external operation (surgical) wound, not elsewhere classified, subsequent encounter; E11.21 Type 2 diabetes mellitus with diabetic nephropathy; S91.302D Unspecified open wound, left foot, subsequent encounter; E11.51 Type 2 diabetes mellitus with diabetic peripheral angiopathy without gangrene; I10 Essential (primary) hypertension; Z95.0 Presence of cardiac pacemaker; Z86.31 Personal history of diabetic foot ulcer; Z87.81 Personal history of (healed) traumatic fracture; Z98.890 Other specified postprocedural states; Y83.8 Other surgical procedures as the cause of abnormal reaction of the patient, or of later complication, without mention of misadventure at the time of the procedure | CPT/HCPCS: 82947; G0277 ==

== ENCOUNTER 2023-04-05 01:36 | Day surgery (SDC) | payer OTHER | END 2023-04-05 22:53 | disposition home or self-care (01) | LOC: HBO 01:36 | DX: I87.313 Chronic venous hypertension (idiopathic) with ulcer of bilateral lower extremity (principal); E11.621 Type 2 diabetes mellitus with foot ulcer; T81.31XD Disruption of external operation (surgical) wound, not elsewhere classified, subsequent encounter; E11.21 Type 2 diabetes mellitus with diabetic nephropathy; S91.302D Unspecified open wound, left foot, subsequent encounter; E11.51 Type 2 diabetes mellitus with diabetic peripheral angiopathy without gangrene; I10 Essential (primary) hypertension; Z86.31 Personal history of diabetic foot ulcer; Z87.81 Personal history of (healed) traumatic fracture; Z98.890 Other specified postprocedural states | CPT/HCPCS: 82947; G0277 ==

== ENCOUNTER 2023-04-10 03:34 | Day surgery (SDC) | payer OTHER | END 2023-04-10 22:58 | disposition home or self-care (01) | LOC: HBO 03:34 | DX: E11.621 Type 2 diabetes mellitus with foot ulcer (principal); L97.522 Non-pressure chronic ulcer of other part of left foot with fat layer exposed; T81.31XD Disruption of external operation (surgical) wound, not elsewhere classified, subsequent encounter; Y83.8 Other surgical procedures as the cause of abnormal reaction of the patient, or of later complication, without mention of misadventure at the time of the procedure; S91.302D Unspecified open wound, left foot, subsequent encounter; X58.XXXD Exposure to other specified factors, subsequent encounter; E11.21 Type 2 diabetes mellitus with diabetic nephropathy; Z86.31 Personal history of diabetic foot ulcer; E11.51 Type 2 diabetes mellitus with diabetic peripheral angiopathy without gangrene; Z87.81 Personal history of (healed) traumatic fracture; I10 Essential (primary) hypertension; Z95.0 Presence of cardiac pacemaker; I87.313 Chronic venous hypertension (idiopathic) with ulcer of bilateral lower extremity; I87.2 Venous insufficiency (chronic) (peripheral); E11.622 Type 2 diabetes mellitus with other skin ulcer; Z98.890 Other specified postprocedural states | CPT/HCPCS: 82947; G0277; G0463 ==

== ENCOUNTER 2023-04-10 08:00 | Day surgery (SDC) | payer OTHER | END 2023-04-10 23:59 | disposition home or self-care (01) | LOC: WOUND 08:00 | DX: E11.621 Type 2 diabetes mellitus with foot ulcer (principal); L97.522 Non-pressure chronic ulcer of other part of left foot with fat layer exposed; I87.313 Chronic venous hypertension (idiopathic) with ulcer of bilateral lower extremity; T81.31XD Disruption of external operation (surgical) wound, not elsewhere classified, subsequent encounter; Y83.8 Other surgical procedures as the cause of abnormal reaction of the patient, or of later complication, without mention of misadventure at the time of the procedure; E11.622 Type 2 diabetes mellitus with other skin ulcer; L97.822 Non-pressure chronic ulcer of other part of left lower leg with fat layer exposed; E11.21 Type 2 diabetes mellitus with diabetic nephropathy; I10 Essential (primary) hypertension; E11.51 Type 2 diabetes mellitus with diabetic peripheral angiopathy without gangrene; S91.302D Unspecified open wound, left foot, subsequent encounter; Z87.81 Personal history of (healed) traumatic fracture; Z86.31 Personal history of diabetic foot ulcer; Z95.0 Presence of cardiac pacemaker; Z98.890 Other specified postprocedural states; X58.XXXD Exposure to other specified factors, subsequent encounter | CPT/HCPCS: G0463 ==

== ENCOUNTER 2023-04-14 01:20 | Day surgery (SDC) | payer OTHER | END 2023-04-14 22:48 | disposition home or self-care (01) | LOC: HBO 01:20 | DX: I87.313 Chronic venous hypertension (idiopathic) with ulcer of bilateral lower extremity (principal); E11.621 Type 2 diabetes mellitus with foot ulcer; T81.31XD Disruption of external operation (surgical) wound, not elsewhere classified, subsequent encounter; E11.21 Type 2 diabetes mellitus with diabetic nephropathy; S91.302D Unspecified open wound, left foot, subsequent encounter; E11.51 Type 2 diabetes mellitus with diabetic peripheral angiopathy without gangrene; I10 Essential (primary) hypertension; Z86.31 Personal history of diabetic foot ulcer; Z87.81 Personal history of (healed) traumatic fracture; Z98.890 Other specified postprocedural states; Z95.0 Presence of cardiac pacemaker; Y83.8 Other surgical procedures as the cause of abnormal reaction of the patient, or of later complication, without mention of misadventure at the time of the procedure; X58.XXXD Exposure to other specified factors, subsequent encounter | CPT/HCPCS: 82947; G0277 ==

== ENCOUNTER 2023-04-17 03:29 | Day surgery (SDC) | payer OTHER | END 2023-04-17 22:51 | disposition home or self-care (01) | LOC: WOUND 03:29 | DX: E11.621 Type 2 diabetes mellitus with foot ulcer (principal); I87.2 Venous insufficiency (chronic) (peripheral); E11.622 Type 2 diabetes mellitus with other skin ulcer; L97.812 Non-pressure chronic ulcer of other part of right lower leg with fat layer exposed; L97.822 Non-pressure chronic ulcer of other part of left lower leg with fat layer exposed; L97.522 Non-pressure chronic ulcer of other part of left foot with fat layer exposed | CPT/HCPCS: G0463 ==

== ENCOUNTER 2023-04-24 02:57 | Day surgery (SDC) | payer OTHER | END 2023-04-24 23:36 | disposition home or self-care (01) | LOC: WOUND 02:57 | DX: E11.621 Type 2 diabetes mellitus with foot ulcer (principal); L97.522 Non-pressure chronic ulcer of other part of left foot with fat layer exposed; E11.622 Type 2 diabetes mellitus with other skin ulcer; L97.822 Non-pressure chronic ulcer of other part of left lower leg with fat layer exposed; T81.31XD Disruption of external operation (surgical) wound, not elsewhere classified, subsequent encounter; E11.21 Type 2 diabetes mellitus with diabetic nephropathy; S91.302D Unspecified open wound, left foot, subsequent encounter; E11.51 Type 2 diabetes mellitus with diabetic peripheral angiopathy without gangrene; I10 Essential (primary) hypertension; I87.313 Chronic venous hypertension (idiopathic) with ulcer of bilateral lower extremity; Z86.31 Personal history of diabetic foot ulcer; Z87.81 Personal history of (healed) traumatic fracture; Z98.890 Other specified postprocedural states; Z95.0 Presence of cardiac pacemaker; Y83.8 Other surgical procedures as the cause of abnormal reaction of the patient, or of later complication, without mention of misadventure at the time of the procedure | CPT/HCPCS: G0463 ==

== ENCOUNTER 2023-05-01 02:07 | Day surgery (SDC) | payer OTHER | END 2023-05-01 23:04 | disposition home or self-care (01) | LOC: WOUND 02:07 | DX: E11.622 Type 2 diabetes mellitus with other skin ulcer (principal); L97.822 Non-pressure chronic ulcer of other part of left lower leg with fat layer exposed; E11.621 Type 2 diabetes mellitus with foot ulcer; L97.522 Non-pressure chronic ulcer of other part of left foot with fat layer exposed; I87.313 Chronic venous hypertension (idiopathic) with ulcer of bilateral lower extremity; T81.31XD Disruption of external operation (surgical) wound, not elsewhere classified, subsequent encounter; E11.21 Type 2 diabetes mellitus with diabetic nephropathy; S91.302D Unspecified open wound, left foot, subsequent encounter; E11.51 Type 2 diabetes mellitus with diabetic peripheral angiopathy without gangrene; I10 Essential (primary) hypertension; Z86.31 Personal history of diabetic foot ulcer; Z87.81 Personal history of (healed) traumatic fracture; Z95.0 Presence of cardiac pacemaker; Z98.890 Other specified postprocedural states; Y83.8 Other surgical procedures as the cause of abnormal reaction of the patient, or of later complication, without mention of misadventure at the time of the procedure | CPT/HCPCS: G0463 ==

== ENCOUNTER 2023-05-08 00:13 | Day surgery (SDC) | payer OTHER ==
[2023-05-08] MEDS ORDERED: Lidocaine HCl 4% Cream 5 GM ONE (09:02)
[2023-05-08] MEDS ORDERED: Silver Nitr/Potassium Nitrate 1 EA APPL ONE (09:03)
== END 2023-05-08 23:45 | disposition home or self-care (01) ==
LOC: WOUND 00:13
DX: E11.621 Type 2 diabetes mellitus with foot ulcer (principal); L97.522 Non-pressure chronic ulcer of other part of left foot with fat layer exposed; I87.2 Venous insufficiency (chronic) (peripheral); L97.812 Non-pressure chronic ulcer of other part of right lower leg with fat layer exposed; L97.829 Non-pressure chronic ulcer of other part of left lower leg with unspecified severity; T81.31XD Disruption of external operation (surgical) wound, not elsewhere classified, subsequent encounter; E11.21 Type 2 diabetes mellitus with diabetic nephropathy; S91.302D Unspecified open wound, left foot, subsequent encounter; Z86.31 Personal history of diabetic foot ulcer; E11.51 Type 2 diabetes mellitus with diabetic peripheral angiopathy without gangrene; Z98.890 Other specified postprocedural states; I10 Essential (primary) hypertension; Z95.0 Presence of cardiac pacemaker; I87.313 Chronic venous hypertension (idiopathic) with ulcer of bilateral lower extremity
CPT/HCPCS: A9270

== ENCOUNTER 2023-05-15 08:00 | Day surgery (SDC) | payer OTHER | END 2023-05-15 22:44 | disposition home or self-care (01) | LOC: WOUND 08:00 | DX: E11.621 Type 2 diabetes mellitus with foot ulcer (principal); L97.522 Non-pressure chronic ulcer of other part of left foot with fat layer exposed; L97.812 Non-pressure chronic ulcer of other part of right lower leg with fat layer exposed; T81.31XD Disruption of external operation (surgical) wound, not elsewhere classified, subsequent encounter; I87.313 Chronic venous hypertension (idiopathic) with ulcer of bilateral lower extremity; S91.302D Unspecified open wound, left foot, subsequent encounter; X58.XXXD Exposure to other specified factors, subsequent encounter; E11.40 Type 2 diabetes mellitus with diabetic neuropathy, unspecified; E11.51 Type 2 diabetes mellitus with diabetic peripheral angiopathy without gangrene; I10 Essential (primary) hypertension; Z96.0 Presence of urogenital implants; Z87.81 Personal history of (healed) traumatic fracture; I87.2 Venous insufficiency (chronic) (peripheral) | CPT/HCPCS: G0463 ==

== ENCOUNTER 2023-05-22 08:00 | Day surgery (SDC) | payer OTHER | END 2023-05-23 22:36 | disposition home or self-care (01) | LOC: WOUND 08:00 | DX: E11.621 Type 2 diabetes mellitus with foot ulcer (principal); T81.31XD Disruption of external operation (surgical) wound, not elsewhere classified, subsequent encounter; E11.21 Type 2 diabetes mellitus with diabetic nephropathy; S91.302D Unspecified open wound, left foot, subsequent encounter; E11.51 Type 2 diabetes mellitus with diabetic peripheral angiopathy without gangrene; Z98.890 Other specified postprocedural states; I10 Essential (primary) hypertension; I87.313 Chronic venous hypertension (idiopathic) with ulcer of bilateral lower extremity | CPT/HCPCS: A9270 ==

== ENCOUNTER 2024-09-18 07:16 | Day surgery (SDC) | payer OTHER ==
[~2024-09-18] VITALS: Ht 176 cm; Wt 180.0 kg
[~2024-09-18 07:16] MED LIST changes: +Benzocaine Oral Spray 0.5ML UD ONE; +DORZOPSO BOTHEYES; +ENTRESTO 24 MG1 EACH PO; +Isosorbide Mono30 MG PO; +JARDIANCE25 MG PO; +Lactated Ringer's 1,000 ML IV SCH; +OZEMPIC2 MG/0.75 SC
[2024-09-18] MEDS ORDERED: propofoL 60 ML IV ONE (08:26)
[2024-09-18 08:45] VITALS: BP 135/64
--- NOTE | 2024-09-18 08:46 | NUR ---
History, Chart, Medications and Allergies reviewed before start of procedure. Pre-Op teaching done. Pt verbalizes understanding. Patient confirms NPO status and agrees with scheduled surgery. Patient States Post-Procedure ride home has been arranged.
--- NOTE | 2024-09-18 09:02 | NUR ---
09/18/24 0902 Rebeca Aldrich History, Chart, Medications and Allergies reviewed before start of procedure.MONITOR INTACT WITH CONTINUOUS PULSE OXIMETRY, CONTINUOUS END TITAL CO2, 3-LEAD EKG AND INTERMITTENT BLOOD PRESSURE.3-LEAD EKG REVIEWED WITH PHYSICIAN PRIOR TO START OF PROCEDURE.O2 VIA POM INTACT THROUGHOUT SEDATION/PROCEDURE.Bite Block Placed.ANGIE JERONIMO CRNA PROVIDING MAC-SEE ANESTHESIA RECORD.
[2024-09-18] MEDS ORDERED: Lactated Ringer's 1,000 ML IV ONE (09:47)
[2024-09-18 10:07] VITALS: BP 114/60
--- NOTE | 2024-09-18 10:40 | NUR ---
Patient up to Ambulate independently. Gait steady. Discharge instructions reviewed with patient. Patient verbalizes understanding. Copy given to patient to take home. Discharged via wheelchair to private car for ride home.
== END 2024-09-18 10:40 | disposition home or self-care (01) ==
LOC: ORSCMMR 07:16 → ORD 08:30 → ORSCMMR 08:30
PROVIDERS: Internal Medicine Gastroenterology
PROC: 0DBL8ZX Excision of Transverse Colon, Via Natural or Artificial Opening Endoscopic, Diagnostic (ICD-10-PCS; principal; 2024-09-18 08:30)
PROC: 0DBK8ZX Excision of Ascending Colon, Via Natural or Artificial Opening Endoscopic, Diagnostic (ICD-10-PCS; principal; 2024-09-18 08:30)
PROC: 0DBH8ZX Excision of Cecum, Via Natural or Artificial Opening Endoscopic, Diagnostic (ICD-10-PCS; principal; 2024-09-18 08:30)
PROC: 0DBM8ZX Excision of Descending Colon, Via Natural or Artificial Opening Endoscopic, Diagnostic (ICD-10-PCS; principal; 2024-09-18 08:30)
PROC: 0DB78ZX Excision of Stomach, Pylorus, Via Natural or Artificial Opening Endoscopic, Diagnostic (ICD-10-PCS; principal; 2024-09-18 08:30)
PROC: 0DB98ZX Excision of Duodenum, Via Natural or Artificial Opening Endoscopic, Diagnostic (ICD-10-PCS; principal; 2024-09-18 08:30)
DX: R19.7 Diarrhea, unspecified (principal); R14.1 Gas pain; D12.4 Benign neoplasm of descending colon; D12.3 Benign neoplasm of transverse colon; D12.2 Benign neoplasm of ascending colon; D12.0 Benign neoplasm of cecum; E11.9 Type 2 diabetes mellitus without complications; R10.9 Unspecified abdominal pain; I10 Essential (primary) hypertension; G47.33 Obstructive sleep apnea (adult) (pediatric); E78.5 Hyperlipidemia, unspecified; I48.91 Unspecified atrial fibrillation; Z79.01 Long term (current) use of anticoagulants; I25.10 Atherosclerotic heart disease of native coronary artery without angina pectoris; Z95.0 Presence of cardiac pacemaker; I25.2 Old myocardial infarction; E66.01 Morbid (severe) obesity due to excess calories; Z68.43 Body mass index [BMI] 50.0-59.9, adult; Z79.899 Other long term (current) drug therapy; Z79.82 Long term (current) use of aspirin; Z79.84 Long term (current) use of oral hypoglycemic drugs; I50.9 Heart failure, unspecified
CPT/HCPCS: 82947; 88305; 88342; A9270; J2704; J7120